=== PATIENT | male | born 1965 | race Caucasian/White ===

== ENCOUNTER 2016-12-11 17:26 | Emergency (ER) | payer OTHER ==
[~2016-12-11] VITALS: Ht 175.3 cm; Wt 81.0 kg
[~2016-12-11 17:26] MED LIST: PRIL20TA2 PO; VENTAER INH; ZITH250T PO
[2016-12-11 17:30] VITALS: BP 170/101; PULSE 85; RESP 16; TEMP 98.6; O2SAT 100
[2016-12-11] MEDS ORDERED: PRIL20CA9 PO (17:38)
--- NOTE | 2016-12-11 17:57 | PD ---
HPI Chief Complaint: Back/ Neck Pain or Injury Time Seen by Provider: 17:52 Travel History International Travel<30 days: No Contact w/Intl Traveler<30days: No Traveled to known affect area: No History of Present Illness HPI 51-year-old male presents to the emergency room for evaluation of low back pain for the past several days. Patient states he first had an episode 3 weeks ago but that seemed to improve slightly until 2 days ago he started back to work. Initial episode was brought on by constant bending down at work. States he tried to stand up at one point and his knees buckled in pain. Pain is localized to the low right lumbar paraspinous musculature. Radiates down the right lower extremity. States certain movements and standing up straight worsens his pain. Pain is improved slightly with laying down, applying heat, and taking Advil. Denies trauma to the back. Denies saddle anesthesia, loss of bowel or bladder control, lower extremity paresthesias, fever, chills, nausea , vomiting, IV drug use, and history of cancer. PFSH Past Medical History Hx Anticoagulant Therapy: No Arthritis: Yes Blood Disorders: No Cancer: No Cardiovascular Problems: No Chemotherapy: No Diabetes: No Diminished Hearing: No Gastrointestinal Disorders: Yes GERD: Yes Genitourinary: No Immune Disorder: No Musculoskeletal: Yes (HX HERNIATED DISC) Neurologic: Yes Psychiatric: No Reproductive: No Respiratory: Yes Immunizations Current: Yes Radiation Therapy: No Tetanus Vaccination: Unknown Influenza Vaccination: No Past Surgical History AICD: No Arteriovenous Shunt: No Insulin Pump: No Joint Replacement: Yes (LEFT KNEE SCREWS) Pacemaker: No Other Surgery: No Social History Alcohol Use: Yes (12 PK) Tobacco Use: Yes (1 PK) Substance Use: No Allergies-Medications (Allergen,Severity, Reaction): Coded Allergies: No Known Allergies (Verified , 12/11/16) Reported Meds & Prescriptions Reported Meds & Active Scripts Active Reported Prilosec (Omeprazole) 20 Mg Cap 20 Mg PO DAILY Review of Systems Except as stated in HPI: all other systems reviewed are Neg Physical Exam Narrative GENERAL: Well-nourished, well-developed male in no acute distress. Afebrile. Ambulatory. SKIN: Warm and dry. HEAD: Normocephalic. EYES: No scleral icterus. No injection or drainage. NECK: Supple, trachea midline. No JVD or lymphadenopathy. BACK: No CVA tenderness. No rash. No point tenderness on palpation of the spine. Tenderness to palpation of the bilateral thoracic paraspinous musculature and right SI joint. Patellar and Achilles reflexes diminished but equal bilaterally. Strength 5/5 and equal in lower extremities. Data Data Last Documented VS Vital Signs Date Time Temp Pulse Resp B/P Pulse Ox O2 Delivery O2 Flow Rate FiO2 12/11/16 18:19 84 18 159/83 98 Room Air 12/11/16 17:30 98.6 Orders Spine, Lumbar - Ltd (Ap & Lat) (12/11/16 ) Ibuprofen (Motrin) (12/11/16 18:00) Cyclobenzaprine (Flexeril) (12/11/16 18:00) Dexamethasone Inj (Decadron Inj) (12/11/16 18:00) MDM Medical Decision Making Medical Screen Exam Complete: Yes Emergency Medical Condition: Yes Medical Record Reviewed: Yes Differential Diagnosis Strain versus fracture versus spasm Narrative Course 51-year-old male presents to the emergency room for evaluation of intermittent low back pain for the 3 weeks that improved initially but worsened 2 days ago. 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 No red flag symptoms. No focal neurological deficits. No midline tenderness. There is tenderness to palpation of the SI joint with radiation to the right lower extremity. No traumatic injury. X-ray reveals degenerative disc disease but no acute fracture. Reports no pain after administration of ibuprofen, Flexeril , and Decadron. Patient will be discharged with prescriptions for ibuprofen and low dose Robaxin. Told to follow-up with a primary care physician or return to the emergency room for worsening symptoms. He understands and agrees to plan. Diagnosis Primary Impression: Repetitive strain injury of lower back Qualified Code: S39.012A - Repetitive strain injury of lower back, initial encounter Referrals: Primary Care Physician Patient Instructions: Acute Low Back Pain (ED), General Instructions Additional Instructions: Rest and drink plenty of fluids. Take Robaxin as directed, as needed for pain. Take ibuprofen with food as directed, as needed for pain. Apply ice to the affected area for 20 minutes at a time, as needed for pain and swelling. Follow-up with a primary care physician. Return to the emergency room for worsening symptoms. Med/Other Pt SpecificInfo: Prescription(s) given Scripts Ibuprofen 600 Mg [id number] Mg PO Q8HR PRN (PAIN) #21 TAB Ref 0 Prov:Gail Mills MD 12/11/16 Methocarbamol (Robaxin)500 Mg [id number] Mg PO Q8HR #15 TAB Ref 0 Prov:Gail Mills MD 12/11/16 Disposition: 01 DISCHARGE HOME Condition: Stable Carlee Portillo Dec 11, 2016 17:57
[2016-12-11] MEDS ORDERED: IBUPROFEN 600 MG TAB PO ONE (18:00)
[2016-12-11] MEDS ORDERED: CYCLOBENZAPRINE HCL 10 MG TAB PO ONE (18:00)
[2016-12-11] MEDS ORDERED: DEXAMETHASONE SOD PHOS 4 MG/ML VIAL IM ONE (18:00)
[2016-12-11 18:19] VITALS: BP 159/83; PULSE 84; RESP 18; O2SAT 98
--- NOTE | 2016-12-11 18:27 | RADHPO ---
EXAM DATE/TIME: 12/11/2016 18:02 [facility] COMPARISON: No previous studies available for comparison. INDICATIONS : Lower back pain for 1 month with no known injury MEDICAL HISTORY : None. SURGICAL HISTORY : None. ENCOUNTER: Initial ACUITY: 1 month PAIN SCORE: 9/10 LOCATION: Lumbar spine FINDINGS: Two view examination was performed. There are five non-rib bearing vertebral bodies. The vertebral bodies are in normal alignment without evidence of subluxation or scoliosis. The disc spaces are mike ntained. The pedicles are intact. Bony mineralization is normal. No fracture is identified. Diffus e mild degenerative changes. CONCLUSION: Mild degenerative changes without fracture. Quinton Almendarez MD on December 11, 2016 at 18:25 Board Certified Radiologist. This report was verified electronically.
[2016-12-11] MEDS ORDERED: IBUP-232 PO (18:30)
[2016-12-11] MEDS ORDERED: ROBA500T PO (18:30)
== END 2016-12-11 18:43 | disposition home or self-care (01) ==
LOC: PHEFT 17:26
DX: S39.012A Strain of muscle, fascia and tendon of lower back, initial encounter (principal); X50.3XXA Overexertion from repetitive movements, initial encounter
CPT/HCPCS: 72100; 96372; 99283; J1100

== ENCOUNTER 2017-05-06 15:13 | Emergency (ER) | payer SELFPAY ==
[~2017-05-06] VITALS: Ht 167.6 cm; Wt 86.1 kg
[~2017-05-06 15:13] MED LIST changes: +IBUP-232 PO; +PRIL20CA9 PO; -PRIL20TA2 PO; +ROBA500T PO; -VENTAER INH; -ZITH250T PO
[2017-05-06 15:21] VITALS: BP 197/106; PULSE 98; RESP 16; TEMP 98.9; O2SAT 99
[2017-05-06 15:33] VITALS: BP 209/105; PULSE 101; RESP 20; O2SAT 97
[2017-05-06] MEDS ORDERED: PRIL20TA2 PO (15:41)
[2017-05-06] MEDS ORDERED: SODIUM CHLOR 0.9% 1000 ML INJ 1,000 ML IV ONE (16:00)
[2017-05-06] MEDS ORDERED: LORazepam 2 MG/ML VIAL IV PUSH ONE (16:00)
--- NOTE | 2017-05-06 16:02 | PD ---
HPI Chief Complaint: Hypertension Time Seen by Provider: 15:47 Travel History International Travel<30 days: No Contact w/Intl Traveler<30days: No Traveled to known affect area: No History of Present Illness HPI This is a 52-year-old male who presents to the emergency department having been at a preop appointment for back surgery in [place] when he was told his blood pressure was high. He had an EKG which demonstrated some signs of left ventricular hypertrophy. I told him he had to come to an emergency Department right away. He's never been told he has high blood pressure but also doesn't see a primary care physician. He does drink 12 beers per day. He drinks 6 beers last night. He acknowledges he may have drank a little bit last because he was going to this appointment. He denies any current chest pain, shortness of breath or headache. PFSH Past Medical History Hx Anticoagulant Therapy: No Arthritis: Yes Blood Disorders: No Cancer: No Cardiovascular Problems: No Chemotherapy: No Diabetes: No Diminished Hearing: No Gastrointestinal Disorders: Yes GERD: Yes Genitourinary: No Immune Disorder: No Musculoskeletal: Yes (HX HERNIATED DISC) Neurologic: Yes Psychiatric: No Reproductive: No Respiratory: Yes Immunizations Current: Yes Radiation Therapy: No Tetanus Vaccination: < 5 Years Influenza Vaccination: No Past Surgical History AICD: No Arteriovenous Shunt: No Insulin Pump: No Joint Replacement: Yes (LEFT KNEE SCREWS) Pacemaker: No Other Surgery: No Social History Alcohol Use: Yes (12 PK) Tobacco Use: Yes (1 1/2 PK) Substance Use: No Allergies-Medications (Allergen,Severity, Reaction): Coded Allergies: No Known Allergies (Verified , 05/06/17) Reported Meds & Prescriptions Reported Meds & Active Scripts Active Reported Prilosec (Omeprazole Magnesium) 20 Mg Tab 1 Tab PO DAILY Review of Systems Except as stated in HPI: all other systems reviewed are Neg Physical Exam Narrative GENERAL: Tremulous, no acute distress SKIN: Focused skin assessment warm and dry. HEAD: Atraumatic. Normocephalic. EYES: Pupils equal and round. No injection or drainage. ENT: Moist mucous membranes NECK: Trachea midline. CARDIOVASCULAR: Tachycardic. No murmur appreciated. RESPIRATORY: Clear to auscultation. Breath sounds equal bilaterally. GASTROINTESTINAL: Abdomen soft, non-tender, hepatomegaly 2 cm below the costal margin. MUSCULOSKELETAL: No obvious deformities. NEUROLOGICAL: Awake and alert. No obvious cranial nerve deficits. Moving all extremities. PSYCHIATRIC: Appropriate mood and affect; insight and judgment normal. Data Data Last Documented VS Vital Signs Date Time Temp Pulse Resp B/P Pulse Ox O2 Delivery O2 Flow Rate FiO2 05/06/17 15:34 93 97 Room Air 05/06/17 15:33 20 209/105 05/06/17 15:21 98.9 Orders Complete Blood Count With Diff (05/06/17 15:48) Comprehensive Metabolic Panel (05/06/17 15:48) ^ Insert Iv (05/06/17 15:48) Troponin I (05/06/17 15:48) Sodium Chlor 0.9% 1000 Ml Inj (Ns 1000 M (05/06/17 16:00) Lorazepam Inj (Ativan Inj) (05/06/17 16:00) MDM Medical Decision Making Medical Screen Exam Complete: Yes Emergency Medical Condition: Yes Interpretation(s) Afebrile, tachycardic, hypertensive Differential Diagnosis Acute alcohol withdrawal, hypertension, hypertensive urgency, hypertensive emergency Narrative Course This is a 52-year-old male who presents to the emergency department with high blood pressure that was appreciated at a preop appointment. He is asymptomatic currently. He does appear tremulous on exam. I suspect this is acute alcohol withdrawal. He acknowledges that he drank a little bit less yesterday leading up to this appointment. Patient was given a dose of IV Ativan. Labs will be obtained. I think he can be discharged home if his blood pressure improves with Ativan. He was given resources for establishing a primary care physician. Gail Mills MD May 06, 2017 16:02
[2017-05-06 16:12] VITALS: BP 193/93; PULSE 89; RESP 20; O2SAT 97
[2017-05-06 16:24] LABS: BASOPHIL % 0.6 % (0.0-2.0); EOSINOPHIL # 0.1 TH/MM3 (0-0.4); EOSINOPHIL % 1.3 % (0.0-4.0); LYMPH % 31.5 % (9.0-44.0); LYMPHOCYTE # 1.6 TH/MM3 (1.0-4.8); MEAN CELL VOLUME 96.2 FL (80.0-100.0); MEAN CORPUSCULAR HEMOGLOBIN 32.2 PG (27.0-34.0); MEAN CORPUSCULAR HGB CONC 33.5 % (32.0-36.0); MONO % 10.6 % (0.0-8.0); PLATELET COUNT 93 TH/MM3 (150-450); RED CELL DISTRIBUTION WIDTH 13.6 % (11.6-17.2); WHITE BLOOD COUNT 5.2 TH/MM3 (4.0-11.0)
[2017-05-06 16:32] LABS: CHLORIDE 98 MEQ/L (98-107); POTASSIUM 3.6 MEQ/L (3.5-5.1); SODIUM (NA) 133 MEQ/L (136-145)
[2017-05-06 16:36] LABS: ANION GAP 13 MEQ/L (5-15); BICARBONATE 22.5 MEQ/L (21.0-32.0)
[2017-05-06 16:37] LABS: BLOOD UREA NITROGEN 4 MG/DL (7-18)
[2017-05-06 16:40] LABS: ALT (GPT) 82 U/L (12-78); AST (GOT) 82 U/L (15-37); GLOMERULAR FILTRATION RATE 107 ML/MIN (>89)
[2017-05-06 16:41] LABS: TOTAL BILIRUBIN ADULT 0.8 MG/DL (0.2-1.0)
[2017-05-06 16:42] LABS: ALKALINE PHOSPHATASE 85 U/L (45-117)
[2017-05-06] MEDS ORDERED: cloNIDine HCL 0.1 MG TAB PO ONE (16:45)
[2017-05-06 16:57] LABS: HEMO FLAGS AUTO DIFF
[2017-05-06 17:06] VITALS: BP 193/95; PULSE 95; RESP 18; O2SAT 97
[2017-05-06] MEDS ORDERED: LISI10TA3 PO (17:18)
--- NOTE | 2017-05-06 17:18 | PD ---
HPI Chief Complaint: Hypertension Time Seen by Provider: 17:05 Travel History International Travel<30 days: No Contact w/Intl Traveler<30days: No Traveled to known affect area: No History of Present Illness HPI This 52-year-old male presented with complaint of high blood pressure. He had gone for a preop evaluation he is scheduled for back surgery next week. He has not had high blood pressure. He does drink a fair amount of beer and had less. The unusual last night. She thought he might be having some symptoms of withdrawal. He was given Ativan. His blood pressures come to 180/100. He had 1 previous episode was blood pressure was high related to pain. He has never been treated for chronic hypertension PFSH Past Medical History Hx Anticoagulant Therapy: No Arthritis: Yes Blood Disorders: No Cancer: No Cardiovascular Problems: No Chemotherapy: No Diabetes: No Diminished Hearing: No Gastrointestinal Disorders: Yes GERD: Yes Genitourinary: No Immune Disorder: No Musculoskeletal: Yes (HX HERNIATED DISC) Neurologic: Yes Psychiatric: No Reproductive: No Respiratory: Yes Immunizations Current: Yes Radiation Therapy: No Tetanus Vaccination: < 5 Years Influenza Vaccination: No Past Surgical History AICD: No Arteriovenous Shunt: No Insulin Pump: No Joint Replacement: Yes (LEFT KNEE SCREWS) Pacemaker: No Other Surgery: No Social History Alcohol Use: Yes (12 PK) Tobacco Use: Yes (1 1/2 PK) Substance Use: No Allergies-Medications (Allergen,Severity, Reaction): Coded Allergies: No Known Allergies (Verified , 05/06/17) Reported Meds & Prescriptions Reported Meds & Active Scripts Active Reported Prilosec (Omeprazole Magnesium) 20 Mg Tab 1 Tab PO DAILY Review of Systems General / Constitutional: No: Fever, Chills Eyes: No: Diploplia, Photophobia HENT: No: Headaches Respiratory: No: Cough, Shortness of Breath Gastrointestinal: No: Vomiting, Diarrhea Genitourinary: No: Urgency Musculoskeletal: No: Myalgias Physical Exam Narrative See Dr. Stevens's dictation Data Data Last Documented VS Vital Signs Date Time Temp Pulse Resp B/P Pulse Ox O2 Delivery O2 Flow Rate FiO2 05/06/17 16:12 89 20 193/93 97 Room Air 05/06/17 15:21 98.9 Orders Complete Blood Count With Diff (05/06/17 15:48) Comprehensive Metabolic Panel (05/06/17 15:48) ^ Insert Iv (05/06/17 15:48) Troponin I (05/06/17 15:48) Sodium Chlor 0.9% 1000 Ml Inj (Ns 1000 M (05/06/17 16:00) Lorazepam Inj (Ativan Inj) (05/06/17 16:00) Clonidine (Catapres) (05/06/17 16:45) Labs Laboratory Tests Test 05/06/17 15:45 White Blood Count 5.2 TH/MM3 Red Blood Count 5.40 MIL/MM3 Hemoglobin 17.4 GM/DL Hematocrit 52.0 % Mean Corpuscular Volume 96.2 FL Mean Corpuscular Hemoglobin 32.2 PG Mean Corpuscular Hemoglobin 33.5 % Concent Red Cell Distribution Width 13.6 % Platelet Count 93 TH/MM3 Mean Platelet Volume 8.2 FL Neutrophils (%) (Auto) 56.0 % Lymphocytes (%) (Auto) 31.5 % Monocytes (%) (Auto) 10.6 % Eosinophils (%) (Auto) 1.3 % Basophils (%) (Auto) 0.6 % Neutrophils # (Auto) 3.0 TH/MM3 Lymphocytes # (Auto) 1.6 TH/MM3 Monocytes # (Auto) 0.5 TH/MM3 Eosinophils # (Auto) 0.1 TH/MM3 Basophils # (Auto) 0.0 TH/MM3 CBC Comment AUTO DIFF Sodium Level 133 MEQ/L Potassium Level 3.6 MEQ/L Chloride Level 98 MEQ/L Carbon Dioxide Level 22.5 MEQ/L Anion Gap 13 MEQ/L Blood Urea Nitrogen 4 MG/DL Creatinine 0.77 MG/DL Estimat Glomerular Filtration 107 ML/MIN Rate Random Glucose 178 MG/DL Calcium Level 8.7 MG/DL Total Bilirubin 0.8 MG/DL Aspartate Amino Transf 82 U/L (AST/SGOT) Alanine Aminotransferase 82 U/L (ALT/SGPT) Alkaline Phosphatase 85 U/L Troponin I 0.02 NG/ML Total Protein 8.2 GM/DL Albumin 3.8 GM/DL [facility] Medical Decision Making Medical Screen Exam Complete: Yes Emergency Medical Condition: Yes Medical Record Reviewed: Yes Differential Diagnosis Differential includes alcohol withdrawal, essential hypertension Narrative Course Patient was given Ativan with improvement of his tremulousness. His blood pressure remained elevated and he has been given clonidine. This is asymptomatic hypertension and I don't think aggressive treatment warranted now but I do feel the patient needs to be on medication for blood pressure. I will initiate lisinopril dose of 10 mg daily but I told the patient that we will start low dose and he'll need to be reevaluated couple of days to see if the dose needs to be increased. Diagnosis Primary Impression: Hypertension Qualified Code: I10 - Essential hypertension Scripts Lisinopril 10 Mg Tab10 Mg PO DAILY #30 TAB Ref 0 Prov:King Farias MD 05/06/17 Disposition: 01 DISCHARGE HOME Condition: Stable King Farias MD May 06, 2017 17:18
[2017-05-06 17:21] LABS: PLATELET ESTIMATE SMEAR NORMAL (NORMAL); PLATELET MORPHOLOGY NORMAL (NORMAL); SCAN/DIFF AUTO DIFF CONFIRMED
[2017-05-06] MEDS ORDERED: CHLO25CA9 PO (17:26)
[2017-05-06] MEDS ORDERED: LISINOPRIL 10 MG TAB PO ONE (17:30)
[2017-05-06 18:00] VITALS: BP 170/96
--- NOTE | 2017-05-07 19:40 | EKG ---
Date Performed: 05/06/2017 Time Performed: 15:33:08 PTAGE: 52 years EKG: Sinus rhythm with borderline 1st degree A-V block Lateral ST-T changes are nonspecific Borderline ECG PREVIOUS TRACING : 09/26/2007 09.17 Compared to prior tracing no significant change DOCTOR: Elder Jaqruin Interpretating Date/Time 05/07/2017 19:39:40
== END 2017-05-06 18:15 | disposition home or self-care (01) ==
LOC: PHED 15:13
DX: I10 Essential (primary) hypertension (principal); I51.7 Cardiomegaly; K21.9 Gastro-esophageal reflux disease without esophagitis; F17.210 Nicotine dependence, cigarettes, uncomplicated; R94.31 Abnormal electrocardiogram [ECG] [EKG]; I44.0 Atrioventricular block, first degree
CPT/HCPCS: 80053; 84484; 85025; 93005; 96361; 96374; 99284; J2060; J7030

== ENCOUNTER 2017-05-23 16:05 | Observation (INO) | payer SELFPAY ==
[~2017-05-23] VITALS: Ht 175.3 cm; Wt 86.0 kg
[~2017-05-23 16:05] MED LIST changes: +CHLO25CA9 PO; -IBUP-232 PO; +LISI10TA3 PO; -PRIL20CA9 PO; +PRIL20TA2 PO; -ROBA500T PO
[2017-05-23 16:07] VITALS: BP 234/112; PULSE 104; RESP 20; TEMP 98.7; O2SAT 99
[2017-05-23 17:28] VITALS: BP 209/102; PULSE 90; RESP 16; O2SAT 98
[2017-05-23] MEDS ORDERED: SODIUM CHLORIDE 0.9% FLUSH 10 ML FLUSH IVF PRN (18:00)
[2017-05-23] MEDS ORDERED: hydrALAZINE HCL 20 MG/ML VIAL IV PUSH ONE (18:00)
[2017-05-23 18:09] VITALS: BP 205/99; PULSE 86; RESP 16; O2SAT 100
--- NOTE | 2017-05-23 18:27 | PD ---
HPI Chief Complaint: Hypertension Time Seen by Provider: 17:36 Travel History International Travel<30 days: No Contact w/Intl Traveler<30days: No Traveled to known affect area: No History of Present Illness HPI 52-year-old male with a history of tobaccoism, daily alcohol use, newly diagnosed hypertension, presents from his doctor's office for evaluation and treatment of elevated blood pressure. The patient was seen at [facility] last month and diagnosed with new onset hypertension. He was started on lisinopril. When he followed up with the outpatient clinic, they found his blood pressure to be over 200 systolic and 100 diastolic. The patient denies any headache. He does report orthostatic dizziness. He denies any chest pain but does state that he occasionally gets tightness. PFSH Past Medical History Hx Anticoagulant Therapy: No Arthritis: Yes Blood Disorders: No Cancer: No Cardiovascular Problems: Yes (HTN) Chemotherapy: No Diabetes: No Diminished Hearing: No Gastrointestinal Disorders: Yes GERD: Yes Genitourinary: No Immune Disorder: No Musculoskeletal: Yes (HX HERNIATED DISC) Neurologic: Yes Psychiatric: No Reproductive: No Respiratory: No Immunizations Current: Yes Radiation Therapy: No ?: Not Past Surgical History AICD: No Arteriovenous Shunt: No Hysterectomy: No Insulin Pump: No Joint Replacement: Yes (LEFT KNEE SCREWS) Pacemaker: No Other Surgery: No Social History Alcohol Use: Yes Tobacco Use: Yes Substance Use: No Allergies-Medications (Allergen,Severity, Reaction): Coded Allergies: No Known Allergies (Verified , 05/23/17) Reported Meds & Prescriptions Reported Meds & Active Scripts Active Lisinopril 10 Mg Tab 10 Mg PO DAILY Reported Prilosec (Omeprazole Magnesium) 20 Mg Tab 1 Tab PO DAILY Review of Systems Except as stated in HPI: all other systems reviewed are Neg General / Constitutional: No: Fever, Chills Eyes: Positive: Blurred Vision (right eye), No: Blindness HENT: No: Headaches, Neck Pain Cardiovascular: Positive: Chest Pain or Discomfort, No: Palpitations ( occasional tightness, none now) Respiratory: No: Cough, Shortness of Breath Gastrointestinal: No: Nausea, Vomiting, Abdominal Pain Musculoskeletal: No: Weakness, Pain Neurologic: Positive: Other (does get tremors occasionally.), No: Weakness, Dizziness, Headache, Change in Mentation, Slurred Speech Physical Exam Narrative GENERAL: Developed well-nourished male in no acute respiratory distress. Patient has a tegan complexion. SKIN: Focused skin assessment warm/dry. HEAD: Atraumatic. Normocephalic. EYES: Pupils equal and round. No scleral icterus. Scleral injection with no drainage. ENT: No nasal bleeding or discharge. Mucous membranes pink and moist. NECK: Trachea midline. Supple. No obvious JVD. CARDIOVASCULAR: Regular rate and rhythm. No murmur appreciated. RESPIRATORY: No accessory muscle use. Clear to auscultation. Breath sounds equal bilaterally. GASTROINTESTINAL: Abdomen soft, non-tender, nondistended. MUSCULOSKELETAL: No obvious deformities. No clubbing. No cyanosis. No edema. NEUROLOGICAL: Awake and alert. No obvious cranial nerve deficits. Motor grossly within normal limits. Normal speech. Data Data Last Documented VS Vital Signs Date Time Temp Pulse Resp B/P Pulse Ox O2 Delivery O2 Flow Rate FiO2 05/23/17 18:31 88 16 168/79 96 Room Air 05/23/17 16:07 98.7 Orders Complete Blood Count With Diff (05/23/17 17:51) Comprehensive Metabolic Panel (05/23/17 17:51) Ckmb (Isoenzyme) Profile (05/23/17 17:51) Troponin I (05/23/17 17:51) Iv Access Insert/Monitor (05/23/17 17:51) Electrocardiogram (05/23/17 17:51) Ecg Monitoring (05/23/17 17:51) Oximetry (05/23/17 17:51) Oxygen Administration (05/23/17 17:51) Chest, Single Ap (05/23/17 17:51) Sodium Chloride 0.9% Flush (Ns Flush) (05/23/17 18:00) Hydralazine Inj (Apresoline Inj) (05/23/17 18:00) Labs Laboratory Tests Test 05/23/17 18:10 White Blood Count 5.7 TH/MM3 Red Blood Count 5.27 MIL/MM3 Hemoglobin 17.3 GM/DL Hematocrit 49.8 % Mean Corpuscular Volume 94.4 FL Mean Corpuscular Hemoglobin 32.9 PG Mean Corpuscular Hemoglobin 34.8 % Concent Red Cell Distribution Width 13.8 % Platelet Count 116 TH/MM3 Mean Platelet Volume 8.3 FL Neutrophils (%) (Auto) % Lymphocytes (%) (Auto) % Monocytes (%) (Auto) % Eosinophils (%) (Auto) % Basophils (%) (Auto) % Neutrophils # (Auto) TH/MM3 Lymphocytes # (Auto) TH/MM3 Monocytes # (Auto) TH/MM3 Eosinophils # (Auto) TH/MM3 Basophils # (Auto) TH/MM3 CBC Comment AUTO DIFF Sodium Level 134 MEQ/L Potassium Level 4.0 MEQ/L Chloride Level 102 MEQ/L Carbon Dioxide Level 24.7 MEQ/L Anion Gap 7 MEQ/L Blood Urea Nitrogen 5 MG/DL Creatinine 0.77 MG/DL Estimat Glomerular Filtration 107 ML/MIN Rate Random Glucose 124 MG/DL Calcium Level 9.4 MG/DL Aspartate Amino Transf 82 U/L (AST/SGOT) Alanine Aminotransferase 93 U/L (ALT/SGPT) Albumin 3.8 GM/DL [facility] Medical Decision Making Medical Screen Exam Complete: Yes Emergency Medical Condition: Yes Interpretation(s) EKG reveals normal sinus rhythm rate of 85. There are no acute ST elevations or depressions. Differential Diagnosis Hypertensive urgency versus uncontrolled hypertension versus withdrawal related hypertension. Narrative Course 52-year-old male who has a recent diagnosis of hypertension, presents today with complaints of continued hypertension. He is following up with his new doctor at [facility] when they noted his blood pressure to be over 200 systolic and 100 diastolic. The patient has been given 20 mg of IVD hydralazine. His blood pressure has come down into the 170s over 80s. He has been started on lisinopril which obviously is not controlling his blood pressure. I discussed the case with Dr. Black with the resident service and recommended we bring him under observation to control his blood pressure prior to discharge. He is agreeable. Diagnosis Primary Impression: Hypertensive urgency Additional Impressions: Tobacco abuse Alcohol abuse, daily use Admitting Information Admitting Physician Requests: Observation Poncho Draper MD May 23, 2017 18:27
[2017-05-23 18:31] VITALS: BP 168/79; PULSE 88; RESP 16; O2SAT 96
[2017-05-23 18:34] LABS: HEMATOCRIT 49.8 % (39.0-51.0); MEAN CELL VOLUME 94.4 FL (80.0-100.0); MEAN CORPUSCULAR HEMOGLOBIN 32.9 PG (27.0-34.0); MEAN CORPUSCULAR HGB CONC 34.8 % (32.0-36.0); PLATELET COUNT 116 TH/MM3 (150-450); RED BLOOD COUNT 5.27 MIL/MM3 (4.50-5.90); RED CELL DISTRIBUTION WIDTH 13.8 % (11.6-17.2); WHITE BLOOD COUNT 5.7 TH/MM3 (4.0-11.0)
[2017-05-23 18:36] LABS: HEMO FLAGS AUTO DIFF
[2017-05-23 18:46] LABS: ALT (GPT) 93 U/L (12-78); ANION GAP 7 MEQ/L (5-15); AST (GOT) 82 U/L (15-37); BICARBONATE 24.7 MEQ/L (21.0-32.0); BLOOD UREA NITROGEN 5 MG/DL (7-18); CHLORIDE 102 MEQ/L (98-107); GLOMERULAR FILTRATION RATE 107 ML/MIN (>89); SODIUM (NA) 134 MEQ/L (136-145)
[2017-05-23 18:49] LABS: ALKALINE PHOSPHATASE 79 U/L (45-117); TOTAL BILIRUBIN ADULT 0.5 MG/DL (0.2-1.0)
[2017-05-23 19:13] LABS: CREATINE KINASE 94 U/L (39-308)
[2017-05-23] MEDS ORDERED: LORazepam 2 MG/ML VIAL IV PUSH ONE (19:15)
[2017-05-23 19:18] LABS: BANDS 1 % (0-6); BASOPHILS 1 % (0-2); NEUTROPHIL # MANUAL DIFF 4.3 TH/MM3 (1.8-7.7); POLYS (SEG NEUTROPHILS) 74 % (16-70); WBC DIFF SAMPLE 100
[2017-05-23 19:19] LABS: PLATELET ESTIMATE SMEAR LOW (NORMAL); PLATELET MORPHOLOGY NORMAL (NORMAL); SCAN/DIFF FINAL DIFF MANUAL
--- NOTE | 2017-05-23 19:39 | RADRPT ---
EXAM DATE/TIME: 05/23/2017 18:31 [facility] COMPARISON: No previous studies available for comparison. INDICATIONS : Patient states high blood pressure tonight. MEDICAL HISTORY : Hypertension. Smoker SURGICAL HISTORY : None. ENCOUNTER: Initial ACUITY: 1 day PAIN SCORE: 2/10 LOCATION: Bilateral chest FINDINGS: A single view of the chest demonstrates the lungs to be symmetrically aerated without evidence of mas s, infiltrate or effusion. The cardiomediastinal contours are unremarkable. Osseous structures are intact. CONCLUSION: Normal examination. Owen Arellano Jr., MD on May 23, 2017 at 19:37 Board Certified Radiologist. This report was verified electronically.
[2017-05-23 19:42] VITALS: BP 157/76; PULSE 92; RESP 16; O2SAT 99
[2017-05-23] MEDS ORDERED: SODIUM CHLORIDE 0.9% FLUSH 10 ML FLUSH IV FLUSH SCH (21:00)
--- NOTE | 2017-05-23 21:14 | HHI.HP ---
[facility] Service Family Medicine Primary Care Physician No Primary Care Physician Admission Diagnosis Hypertensive urgency, tobacco abuse, daily alcohol use Diagnoses: International Travel<30 Days: No Contact w/Intl Traveler<30days: No Known Affected Area: No History of Present Illness 52 year old male presents with hypertensive urgency. He first became aware of having hypertension on 05/06/17 when he presented for a pre-op evaluation for spondylolisthesis. His blood pressure was significantly elevated and he was told he needed to establish with a primary care. He has not had a primary care doctor in 17 years. He established with a doctor at [facility]. He presented for his first appt today and his blood pressure was 234/108. They sent him to the ED. He does not have any symptoms. No chest pain, shortness of breath, abdominal pain, nausea, vomiting, diarrhea, calf swelling or tenderness , lower extremity edema, lightheadedness, blurry vision, headache, neurological deficits. As a side note, he has significant ulceration on the right ala of nose and above the right lip. These appear to be malignant lesions. His skin is deeply tanned and he is in the sun a lot. He also drinks 8 beers a night. He has been admitted for alcohol withdrawals in the past. (Shade Black MD R2) Review of Systems Constitutional: DENIES: Diaphoretic episodes, Fatigue, Fever, Weight loss, Chills, Dizziness, Change in appetite Endocrine: DENIES: Polydipsia, Polyuria, Polyphagia Eyes: DENIES: Blurred vision, Eye inflammation, Eye pain, Double Vision Ears, nose, mouth, throat: DENIES: Running Nose, Epistaxis, Sinus Pain, Odynophagia Respiratory: DENIES: Cough, Wheezing, Hemoptysis, Sputum production, Shortness of breath Cardiovascular: DENIES: Chest pain, Syncope, Dyspnea on Exertion, Lower Extremity Edema, Orthopnea Gastrointestinal: DENIES: Abdominal pain, Black stools, Bloody stools, Constipation, Diarrhea, Nausea, Vomiting Genitourinary: DENIES: Urinary frequency, Urgency, Dysuria Musculoskeletal: COMPLAINS OF: Back pain, DENIES: Joint pain, Stiffness Integumentary: DENIES: Rash Hematologic/lymphatic: DENIES: Lymphadenopathy Immunologic/allergic: DENIES: Eczema Neurologic: DENIES: Abnormal gait Psychiatric: DENIES: Confusion, Hallucinations, Agitation (Shade Black MD R2) Past Family Social History Past Medical History Gastritis spondylolisthesis no doctor in the last 17 years Past Surgical History left knee surgery Reported Medications Reported Meds & Active Scripts Active Lisinopril 10 Mg Tab 10 Mg PO DAILY Reported Prilosec (Omeprazole Magnesium) 20 Mg Tab 1 Tab PO DAILY (Shade Black MD R2) Allergies: Coded Allergies: No Known Allergies (Verified , 05/23/17) Active Ordered Medications Inpatient Medications Hydralazine HCl (Apresoline Inj) 20 mg ONCE ONCE IV PUSH Last administered on 05/23/17 18:17; Start 05/23/17 at 18:00; Stop 05/23/17 at 18:01; Status DC Lorazepam (Ativan Inj) 2 mg ONCE ONCE IV PUSH Last administered on 05/23/17 19:43; Start 05/23/17 at 19:15; Stop 05/23/17 at 19:16; Status DC Sodium Chloride (NS Flush) 2 ml BID IV FLUSH ; Start 05/23/17 at 21:00 Family History Father: healthy Mother: diabetes, strokes (late 60's), hypertension Sister: high cholesterol Social History Smokes pack per day since age 17 Alcohol: 8 pack per night Lives by himself Sister helps care for him Does not work (Shade Black MD R2) Physical Exam Vital Signs Vital Signs Date Time Temp Pulse Resp B/P Pulse Ox O2 Delivery O2 Flow Rate FiO2 05/23/17 19:42 92 16 157/76 99 Room Air 05/23/17 18:31 88 16 168/79 96 Room Air 05/23/17 18:09 86 16 205/99 100 Room Air 05/23/17 18:09 99 Room Air 05/23/17 17:28 90 16 209/102 98 Room Air 05/23/17 17:24 98 Room Air 05/23/17 16:07 98.7 104 20 234/112 99 Room Air Physical Exam GENERAL: Somewhat disheveled, darkly tanned SKIN: Significant ulceration of the right ala and right upper lip appearing malignant, likely basal cell versus squamous cell carcinoma. HEAD: Atraumatic. Normocephalic. No temporal or scalp tenderness. EYES: Pupils equal round and reactive. Extraocular motions intact. No scleral icterus. No injection or drainage. ENT: Nose without bleeding, purulent drainage or septal hematoma. Throat without erythema, tonsillar hypertrophy or exudate. Uvula midline. Airway patent. NECK: Trachea midline. No JVD or lymphadenopathy. Supple, nontender, no meningeal signs. CARDIOVASCULAR: Regular rate and rhythm without murmurs, gallops, or rubs. RESPIRATORY: Clear to auscultation. Breath sounds equal bilaterally. No wheezes , rales, or rhonchi. GASTROINTESTINAL: Abdomen soft, non-tender, nondistended. No hepato-splenomegaly , or palpable masses. No guarding. MUSCULOSKELETAL: Extremities without clubbing, cyanosis, or edema. No joint tenderness, effusion, or edema noted. No calf tenderness. Negative Homans sign bilaterally. NEUROLOGICAL: Awake and alert. Cranial nerves II through XII intact. Motor and sensory grossly within normal limits. Five out of 5 muscle strength in all muscle groups. Normal speech. Laboratory Laboratory Tests Test 05/23/17 18:10 White Blood Count 5.7 Red Blood Count 5.27 Hemoglobin 17.3 Hematocrit 49.8 Mean Corpuscular Volume 94.4 Mean Corpuscular Hemoglobin 32.9 Mean Corpuscular Hemoglobin 34.8 Concent Red Cell Distribution Width 13.8 Platelet Count 116 Mean Platelet Volume 8.3 Neutrophils (%) (Auto) Lymphocytes (%) (Auto) Monocytes (%) (Auto) Eosinophils (%) (Auto) Basophils (%) (Auto) Neutrophils # (Auto) Lymphocytes # (Auto) Monocytes # (Auto) Eosinophils # (Auto) Basophils # (Auto) CBC Comment AUTO DIFF Differential Total Cells 100 Counted Neutrophils % (Manual) 74 Band Neutrophils % 1 Lymphocytes % 12 Monocytes % 12 Basophils % 1 Neutrophils # (Manual) 4.3 Differential Comment FINAL DIFF MANUAL Platelet Estimate LOW Platelet Morphology Comment NORMAL Red Cell Morphology Comment NORMAL Sodium Level 134 Potassium Level 4.0 Chloride Level 102 Carbon Dioxide Level 24.7 Anion Gap 7 Blood Urea Nitrogen 5 Creatinine 0.77 Estimat Glomerular Filtration 107 Rate Random Glucose 124 Calcium Level 9.4 Total Bilirubin 0.5 Aspartate Amino Transf 82 (AST/SGOT) Alanine Aminotransferase 93 (ALT/SGPT) Alkaline Phosphatase 79 Total Creatine Kinase 94 Troponin I 0.02 Total Protein 8.1 Albumin 3.8 (Shade Black MD R2) Result Diagram: 05/23/17180905/23/17 181 Imaging Last 72 hours Impressions Chest X-Ray 05/23/17 1751 Signed Impressions: Service Date/Time: Tuesday, May 23, 2017 18:31 - CONCLUSION: Normal examination. Owen Arellano Jr., MD (Shade Black MD R2) Septic Shock Reassessment Heart: Regular rate and rhythm Lungs: Clear Skin: Warm Capillary Refill: <2 seconds (Shade Black MD R2) Assessment and Plan Assessment and Plan 52 year old male with hypertensive urgency Code Status FULL CODE Discussed Condition With Seen and discussed with Dr. Contreras, Dr. Draper (Shade Black MD R2) Attending Attestation Patient seen and examined. Case reviewed and discussed with the resident team. Agree with plan of care as discussed with me and documented in the resident note. pt seen in ED on admission, doing well with decreased BPs (Laila Salazar MD) Problem List: (1) Hypertensive urgency Status: Acute Plan: Blood pressure in the 200's/100's without evidence of end organ damage, hypertensive urgency. Given hydralazine 20 mg once in ED. - Continue lisinopril 10 mg from home - Add amlodipine 10 mg daily - Clonidine 0.1 mg PO PRN - Avoid rapid lowering of blood pressure, aim for 20% reduction in first 24 hrs - Cardiac monitoring - ECHO tomorrow - EKG reviewed, LVH, sinus rhythm (2) Alcohol abuse, daily use Status: Chronic Plan: Drinks 8 beers per night, history of alcohol withdrawals per records - CIWA protocol - Ativan PRN according to CIWA score - Multivitamin, thiamine, folic acid (3) Tobacco abuse Status: Chronic Plan: Smoke 1 PPD - Nicotine patch - Counseling for tobacco cessation (4) Squamous cell carcinoma Status: Chronic Plan: Ulceration of right ala and right upper lip, suggestive of basal cell or squamous cell carcinoma - Referral to be worked up as an outpatient - Counseling about sun exposure (5) Nutrition, metabolism, and development symptoms Status: Acute Plan: PO fluids Regular diet (6) No contraindication to deep vein thrombosis (DVT) prophylaxis Status: Acute Plan: SCD's Lovenox 40 mg (Shade Black MD R2) Shade Black MD R2 May 23, 2017 21:14 Laila Salazar MD May 24, 2017 13:59
[2017-05-23] MEDS ORDERED: cloNIDine HCL 0.1 MG TAB PO PRN (21:15)
[2017-05-23] MEDS ORDERED: SODIUM CHLORIDE 0.9% FLUSH 10 ML FLUSH IV FLUSH PRN (21:15)
[2017-05-23] MEDS ORDERED: LORazepam 2 MG TAB PO PRN (21:15)
[2017-05-23] MEDS ORDERED: NICOTINE 7 MG/24 HR PATCH T-DERMAL ONE (21:15)
[2017-05-23] MEDS ORDERED: FLUMAZENIL 0.5 MG/5 ML VIAL IV PUSH PRN (21:15)
[2017-05-23] MEDS ORDERED: ONDANSETRON HCL 4 MG/2 ML VIAL IV PRN (21:15)
[2017-05-23] MEDS ORDERED: LORazepam 2 MG/ML VIAL IV PUSH PRN ×4 (21:15)
[2017-05-23] MEDS ORDERED: LORazepam 1 MG TAB PO PRN (21:15)
[2017-05-23] MEDS ORDERED: ENOXAPARIN SODIUM 40 MG/0.4 ML SYRINGE SQ SCH (22:00)
[2017-05-23 22:32] LABS: BACTERIA, URINE RARE /hpf; BLOOD, URINE NEG (NEG); COMMENT (UR) CULT NOT INDICATED; CULTURE IF INDICATED CULT NOT INDICATED; GLUCOSE,URINE NEG (NEG); KETONE, URINE NEG (NEG); NITRITE,URINE NEG (NEG); URINE COLOR YELLOW (YELLW/STRAW)
[2017-05-23 22:47] VITALS: BP 172/90; PULSE 90; RESP 18; O2SAT 99
[2017-05-23 23:02] LABS: AMPHETAMINE, URINE NEG (NEG); BARBITURATES, URINE NEG (NEG); COCAINE, URINE NEG (NEG)
[2017-05-24] VITALS (7 sets, daily range): BP systolic 154–198; BP diastolic 87–101; PULSE 84–89; RESP 16–18; TEMP 98.5–98.7; O2SAT 98–99
[2017-05-24] MEDS ORDERED: LISI10TA3 PO (01:10)
[2017-05-24] MEDS ORDERED: LISINOPRIL 10 MG TAB PO SCH (09:00)
[2017-05-24] MEDS ORDERED: FOLIC ACID 1 MG TAB PO SCH (09:00)
[2017-05-24] MEDS ORDERED: SODIUM CHLORIDE 0.9% FLUSH 10 ML FLUSH IV FLUSH SCH (09:00)
[2017-05-24] MEDS ORDERED: PNEUMOCOCCAL POLYVALENT INJ 25 MCG/0.5 ML SYR IM ONE (09:00)
[2017-05-24] MEDS ORDERED: PANTOPRAZOLE SOD 40 MG DELAYED RELEASE TAB PO SCH (09:00)
[2017-05-24] MEDS ORDERED: NICOTINE 7 MG/24 HR PATCH T-DERMAL SCH (09:00)
[2017-05-24] MEDS ORDERED: MULTIVITAMINS/MINERALS THERAPEUTIC TAB PO SCH (09:00)
[2017-05-24] MEDS ORDERED: REMOVE OLD NICODERM (NICOTINE) PATCH T-DERMAL SCH (09:00)
[2017-05-24] MEDS ORDERED: THIAMINE HCL 100 MG TAB PO SCH (09:00)
[2017-05-24 09:38] LABS: HEMATOCRIT 49.3 % (39.0-51.0); MEAN CELL VOLUME 93.6 FL (80.0-100.0); MEAN CORPUSCULAR HGB CONC 35.3 % (32.0-36.0); PLATELET COUNT 117 TH/MM3 (150-450); RED BLOOD COUNT 5.26 MIL/MM3 (4.50-5.90); RED CELL DISTRIBUTION WIDTH 13.8 % (11.6-17.2); REVIEW FLAG FINAL
--- NOTE | 2017-05-24 09:45 | HHI.HP ---
[facility] Service Family Medicine Primary Care Physician No Primary Care Physician Admission Diagnosis Hypertensive urgency, tobacco abuse, daily alcohol use Diagnoses: (1) Hypertensive urgency Diagnosis: Principal (2) Alcohol abuse, daily use Diagnosis: Principal (3) Tobacco abuse Diagnosis: Principal (4) Squamous cell carcinoma Diagnosis: Principal (5) Nutrition, metabolism, and development symptoms Diagnosis: Principal (6) No contraindication to deep vein thrombosis (DVT) prophylaxis Diagnosis: Principal International Travel<30 Days: No Contact w/Intl Traveler<30days: No Known Affected Area: No History of Present Illness 52 year old male presents with hypertensive urgency. He first became aware of having hypertension on 05/06/17 when he presented for a pre-op evaluation for spondylolisthesis. His blood pressure was significantly elevated and he was told he needed to establish with a primary care. He has not had a primary care doctor in 17 years. He established with a doctor at [facility]. He presented for his first appt and his blood pressure was 234/108. They sent him to the ED. He does not have any symptoms. No chest pain, shortness of breath, abdominal pain, nausea, vomiting, diarrhea, calf swelling or tenderness, lower extremity edema, lightheadedness, blurry vision, headache, neurological deficits. As a side note, he has significant ulceration on the right ala of nose and above the right lip. These appear to be malignant lesions. His skin is deeply tanned and he is in the sun a lot. He also drinks 8 beers a night. He has been admitted for alcohol withdrawals in the past. He feels well today and his BPs are significantly lower than his outpt numbers of systolics greater than 230. he has been less than 200 while here in the hospital. He states he gets very nervous when he is in the hospital or when he has his BPs checked. Review of Systems Other Constitutional: DENIES: Diaphoretic episodes, Fatigue, Fever, Weight loss, Chills, Dizziness, Change in appetite Endocrine: DENIES: Polydipsia, Polyuria, Polyphagia Eyes: DENIES: Blurred vision, Eye inflammation, Eye pain, Double Vision Ears, nose, mouth, throat: DENIES: Running Nose, Epistaxis, Sinus Pain, Odynophagia Respiratory: DENIES: Cough, Wheezing, Hemoptysis, Sputum production, Shortness of breath Cardiovascular: DENIES: Chest pain, Syncope, Dyspnea on Exertion, Lower Extremity Edema, Orthopnea Gastrointestinal: DENIES: Abdominal pain, Black stools, Bloody stools, Constipation, Diarrhea, Nausea, Vomiting Genitourinary: DENIES: Urinary frequency, Urgency, Dysuria Musculoskeletal: COMPLAINS OF: Back pain, DENIES: Joint pain, Stiffness Integumentary: DENIES: Rash Hematologic/lymphatic: DENIES: Lymphadenopathy Immunologic/allergic: DENIES: Eczema Neurologic: DENIES: Abnormal gait Psychiatric: DENIES: Confusion, Hallucinations, Agitation Past Family Social History Past Medical History Gastritis spondylolisthesis no doctor in the last 17 years HTN Past Surgical History left knee surgery Allergies: Coded Allergies: No Known Allergies (Verified , 05/23/17) Family History Father: healthy Mother: diabetes, strokes (late 60's), hypertension Sister: high cholesterol Social History Smokes pack per day since age 17 Alcohol: 8 pack per night Lives by himself Sister helps care for him Does not work Physical Exam Vital Signs Vital Signs Date Time Temp Pulse Resp B/P Pulse Ox O2 Delivery O2 Flow Rate FiO2 05/24/17 08:08 98.7 86 16 165/87 98 05/24/17 03:45 98.5 89 18 154/88 98 05/23/17 22:47 90 18 172/90 99 05/23/17 19:42 92 16 157/76 99 Room Air 05/23/17 18:31 88 16 168/79 96 Room Air 05/23/17 18:09 86 16 205/99 100 Room Air 05/23/17 18:09 99 Room Air 05/23/17 17:28 90 16 209/102 98 Room Air 05/23/17 17:24 98 Room Air 05/23/17 16:07 98.7 104 20 234/112 99 Room Air Physical Exam GENERAL: Somewhat disheveled, darkly tanned SKIN: Significant ulceration of the right ala and right upper lip appearing malignant, likely basal cell versus squamous cell carcinoma. HEAD: Atraumatic. Normocephalic. EYES: Pupils equal round and reactive. Extraocular motions intact. No scleral icterus. No injection or drainage. ENT: Nose without bleeding, purulent drainage or septal hematoma. Airway patent. NECK: Trachea midline. No JVD or lymphadenopathy. Supple, nontender, no meningeal signs. CARDIOVASCULAR: Regular rate and rhythm without murmurs, gallops, or rubs. RESPIRATORY: Clear to auscultation. Breath sounds equal bilaterally. No wheezes , rales, or rhonchi. GASTROINTESTINAL: Abdomen soft, non-tender, nondistended. No hepato-splenomegaly , or palpable masses. No guarding. MUSCULOSKELETAL: Extremities without clubbing, cyanosis, or edema. No joint tenderness, effusion, or edema noted. No calf tenderness. Negative Homans sign bilaterally. NEUROLOGICAL: Awake and alert. Cranial nerves II through XII intact. Motor and sensory grossly within normal limits. Five out of 5 muscle strength in all muscle groups. Normal speech. walking in [place] feeling well this am Laboratory Laboratory Tests Test 05/23/17 05/23/17 05/24/17 18:10 22:00 09:12 White Blood Count 5.7 5.0 Red Blood Count 5.27 5.26 Hemoglobin 17.3 17.4 Hematocrit 49.8 49.3 Mean Corpuscular Volume 94.4 93.6 Mean Corpuscular Hemoglobin 32.9 33.0 Mean Corpuscular Hemoglobin 34.8 35.3 Concent Red Cell Distribution Width 13.8 13.8 Platelet Count 116 117 Mean Platelet Volume 8.3 8.3 Neutrophils (%) (Auto) Lymphocytes (%) (Auto) Monocytes (%) (Auto) Eosinophils (%) (Auto) Basophils (%) (Auto) Neutrophils # (Auto) Lymphocytes # (Auto) Monocytes # (Auto) Eosinophils # (Auto) Basophils # (Auto) CBC Comment AUTO DIFF Differential Total Cells 100 Counted Neutrophils % (Manual) 74 Band Neutrophils % 1 Lymphocytes % 12 Monocytes % 12 Basophils % 1 Neutrophils # (Manual) 4.3 Differential Comment FINAL DIFF MANUAL Platelet Estimate LOW Platelet Morphology Comment NORMAL Red Cell Morphology Comment NORMAL Sodium Level 134 Potassium Level 4.0 Chloride Level 102 Carbon Dioxide Level 24.7 Anion Gap 7 Blood Urea Nitrogen 5 Creatinine 0.77 Estimat Glomerular Filtration 107 Rate Random Glucose 124 Calcium Level 9.4 Total Bilirubin 0.5 Aspartate Amino Transf 82 (AST/SGOT) Alanine Aminotransferase 93 (ALT/SGPT) Alkaline Phosphatase 79 Total Creatine Kinase 94 Troponin I 0.02 Total Protein 8.1 Albumin 3.8 Urine Color YELLOW Urine Turbidity CLEAR Urine pH 7.0 Urine Specific [place] 1.009 Urine Protein 30 Urine Glucose (UA) NEG Urine Ketones NEG Urine Occult Blood NEG Urine Nitrite NEG Urine Bilirubin NEG Urine Urobilinogen LESS THAN 2.0 Urine Leukocyte Esterase NEG Urine RBC LESS THAN 1 Urine WBC 3 Urine Bacteria RARE Microscopic Urinalysis Comment CULT NOT INDICATED Urine Opiates Screen NEG Urine Barbiturates Screen NEG Urine Amphetamines Screen NEG Urine Benzodiazepines Screen NEG Urine Cocaine Screen NEG Urine Cannabinoids Screen NEG Result Diagram: 05/24/17 0912 05/23/17 1810 Imaging Last 72 hours Impressions Chest X-Ray 05/23/17 1751 Signed Impressions: Service Date/Time: Tuesday, May 23, 2017 18:31 - CONCLUSION: Normal examination. Owen Arellano Jr., MD Assessment and Plan Assessment and Plan 52 year old male with hypertensive urgency He very much wants to go home today. he knows the importance of taking his BP meds and follow up with his new Dr. He is anxious in the hospital and reports he will feel better at home. he does not want to quit drinking alcohol so would not recommend benzos at home. his final echo report is pending but preliminary shows good EF, no but can follow up with his Dr as an outpt Problem List: (1) Hypertensive urgency Status: Acute Plan: Blood pressure in the 200's/100's without evidence of end organ damage except LVH, hypertensive urgency. Given hydralazine 20 mg once in ED. goal is to drop BP slowly over time, he has LVH and is accustomed to very high pressures so his heart and vasculature can remodel over weeks or even months. would aim for a BP systolic less than 200 initially. can then decrease to less than 180 systolic as an outpt. he has a primary care Dr he just started seeing so should be able to follow up with them - Continue lisinopril 10 mg from home (a very low dose) - Add amlodipine 10 mg daily - Clonidine 0.1 mg PO PRN in hospital would avoid at home because of potential rebound HTN - Avoid rapid lowering of blood pressure, aim for 20% reduction in first 24 hrs at most. would decrease BP slowly over time - Cardiac monitoring - ECHO done, can follow up as an outpt - EKG reviewed, LVH, sinus rhythm (2) Alcohol abuse, daily use Status: Chronic Plan: Drinks 8 beers per night, history of alcohol withdrawals per records - CIWA protocol - Ativan PRN according to CIWA score - Multivitamin, thiamine, folic acid he does not want to quit drinking. He reports cutting down from 24 beers per day to about 8. He was advised to quit but is not ready at this point. He states he has baseline anxiety and is afraid when he comes to the hospital but states he is not anxious right now after ativan. he has no hallucinations or other signs of withdrawal now and really wants to go home today (3) Tobacco abuse Status: Chronic Plan: Smoke 1 PPD - Nicotine patch - Counseling for tobacco cessation (4) Squamous cell carcinoma Status: Chronic Plan: Ulceration of right ala and right upper lip, suggestive of basal cell or squamous cell carcinoma - Referral to be worked up as an outpatient - Counseling about sun exposure he was told that he likely has cancer and needs biopsies. he has a referral to general surgery for consideration of biopsy. otherwise if he cannot make that appointment, advised him he could see dermatology, etc. (5) Nutrition, metabolism, and development symptoms Status: Acute Plan: PO fluids Regular diet slight decreased NA possibly beer related, can follow up as an outpt (6) No contraindication to deep vein thrombosis (DVT) prophylaxis Status: Acute Plan: SCD's Lovenox 40 mg Laila Salazar MD May 24, 2017 09:45
[2017-05-24 10:11] LABS: BICARBONATE 23.2 MEQ/L (21.0-32.0); POTASSIUM 3.9 MEQ/L (3.5-5.1)
--- NOTE | 2017-05-24 11:44 | EKG ---
Date Performed: 05/23/2017 Time Performed: 18:14:37 PTAGE: 52 years EKG: Sinus rhythm POSSIBLE LEFT ATRIAL ENLARGEMENT Since previous tracing, no significant change noted BORDERLINE ECG PREVIOUS TRACING : 05/06/2017 15.33 DOCTOR: Ace Rouse Interpretating Date/Time 05/24/2017 12:04:41
[2017-05-24] MEDS ORDERED: AMLO10 PO (11:53)
--- NOTE | 2017-05-24 11:53 | HHI.DCPOC ---
Discharge Care Plan Diagnosis: (1) Hypertensive urgency Goals to Promote Your Health * To prevent worsening of your condition and complications * To maintain your health at the optimal level Directions to Meet Your Goals Take your medications as prescribed Follow your dietary instruction Follow activity as directed Keep your appointments as scheduled Take your immunizations and boosters as scheduled If your symptoms worsen call your PCP, if no PCP go to Urgent Care Center or Emergency Room Smoking is Dangerous to Your Health. Avoid second hand smoke Call the 24-hour hour crisis hotline for domestic abuse at [place] Mera MD R1 May 24, 2017 11:53
--- NOTE | 2017-05-24 15:31 | ECHRPT ---
Indication: Hypertensive heart disease without heart failure CONCLUSIONS Normal left ventricular size. Mild concentric left ventricular hypertrophy. There is global left ventricular dysfunction. The left ventricular systolic function is mildly reduced with an estimated ejection fraction in the range of 45- 50%. Doppler parameters are consistent with impaired left ventricular relaxtion (grade 1 diastolic dysfun ction). Probably Trileaflet aortic valve. [id number]-[id number] aortic valve regurgitation. BP: 154 / 88 HR: 89 Rhythm: Sinus MEASUREMENTS (Male / Female) Normal Values Technical Quality:Technically difficult study 2D ECHO LV Diastolic Diameter PLAX 5.7 cm 4.2 - 5.9 / 3.9 - 5.3 cm LV Systolic Diameter PLAX 4.2 cm IVS Diastolic Thickness 1.5 cm 0.6 - 1.0 / 0.6 - 0.9 cm LVPW Diastolic Thickness 1.5 cm 0.6 - 1.0 / 0.6 - 0.9 cm LV Relative Wall Thickness 0.5 LVOT Diameter 2.7 cm Aortic Root Diameter 3.6 cm LA Systolic Diameter LX 2.7 cm 3.0 - 4.0 / 2.7 - 3.8 cm DOPPLER AV Peak Velocity 185.0 cm/s AV Peak Gradient 13.7 mmHg AV Mean Gradient 7.5 mmHg AV Velocity Time Integral 37.8 cm AI Peak Velocity 393.5 cm/s AI Peak Gradient 61.9 mmHg AI Pressure Half Time 354.5 ms LVOT Peak Velocity 54.1 cm/s LVOT Peak Gradient 1.2 mmHg LVOT Velocity Time Integral 12.9 cm LVOT Cardiac Index 3190.0 cm/minm AV Area Cont Eq vti 2.0 cm AV Area Cont Eq pk 1.7 cm Mitral E Point Velocity 76.5 cm/s Mitral A Point Velocity 119.0 cm/s Mitral E to A Ratio 0.6 LV E' Lateral Velocity 5.7 cm/s Mitral E to LV E' Lateral Ratio 13.5 LV E' Septal Velocity 8.2 cm/s Mitral E to LV E' Septal Ratio 9.3 PV Peak Velocity 57.9 cm/s PV Peak Gradient 1.3 mmHg FINDINGS LEFT VENTRICLE There is global left ventricular dysfunction. Normal left ventricular size. Mild concentric left ventricular hypertrophy. The left ventricular systolic function is mildly reduced with an estimated ejection fraction in the range of 45- 50%. Doppler parameters are consistent with impaired left ventricular relaxtion (grade 1 diastolic dysfun ction). RIGHT VENTRICLE Normal right ventricular size and systolic function. LEFT ATRIUM The left atrial size is normal. RIGHT ATRIUM The right atrial size is normal. ATRIAL SEPTUM The interatrial septum not well visualized. AORTA The aortic root and proximal ascending aorta are not well visualized. MITRAL VALVE Structurally normal mitral valve. Mild mitral valve regurgitation. AORTIC VALVE Probably Trileaflet aortic valve. [id number] aortic valve regurgitation. TRICUSPID VALVE Structurally normal tricuspid valve. No tricuspid regurgitation. PULMONARY VALVE The pulmonary valve is not well visualized. VESSELS The inferior vena cava was not well visualized. PERICARDIUM No pericardial effusion. Fabian Moreno MD (Electronically Signed) Final Date:24 May 2017 15:30
== END 2017-05-24 14:47 | disposition home or self-care (01) ==
LOC: NEPC 16:05 → NEDA 19:25 → NEPHCDU 22:23
PROVIDERS: ADMIT Family Medicine; ATTEND Family Medicine
DX: I16.0 Hypertensive urgency (principal); M43.10 Spondylolisthesis, site unspecified; F17.210 Nicotine dependence, cigarettes, uncomplicated; F10.10 Alcohol abuse, uncomplicated; L98.499 Non-pressure chronic ulcer of skin of other sites with unspecified severity; R93.41 Abnormal radiologic findings on diagnostic imaging of renal pelvis, ureter, or bladder
CPT/HCPCS: 71010; 80048; 80053; 80074; 80307; 81001; 82550; 84484; 85007; 85027; 93005; 93306; 96374; 96375; 99285; G0378; J0360; J1650; J2060

== ENCOUNTER 2018-03-06 12:23 | Inpatient (IN) | payer OTHER ==
[~2018-03-06] VITALS: Ht 175.3 cm; Wt 82.5 kg
[~2018-03-06 12:23] MED LIST changes: +AMLO10 PO; -CHLO25CA9 PO
[2018-03-06 12:26] VITALS: BP 190/94; PULSE 103; RESP 16; TEMP 98.6; O2SAT 99
[2018-03-06] MEDS ORDERED: SODIUM CHLOR 0.9% 1000 ML INJ 1,000 ML IV SCH (12:41)
[2018-03-06] MEDS ORDERED: MORPHINE SULFATE 4 MG/ML INJ IV PUSH ONE (12:45)
[2018-03-06] MEDS ORDERED: KETOROLAC TROMETHAMINE 30 MG/ML (IVP) VIAL IVP ONE (12:45)
[2018-03-06] MEDS ORDERED: SODIUM CHLORIDE 0.9% FLUSH 10 ML FLUSH IV FLUSH PRN ×2 (12:45→15:15)
[2018-03-06] MEDS ORDERED: ONDANSETRON HCL 4 MG/2 ML VIAL IVP ONE (12:45)
--- NOTE | 2018-03-06 12:45 | PD ---
HPI Chief Complaint: Abdominal Pain Time Seen by Provider: 12:34 Travel History International Travel<30 days: No Contact w/Intl Traveler<30days: No Traveled to known affect area: No History of Present Illness HPI The patient is a 52-year-old male who presents to the emergency department for abdominal pain. Patient is a 3 day history of epigastric to right upper quadrant abdominal pain that radiates to the back. The patient denies any nausea, vomiting, or postprandial pain. The patient does complain of mild loose stools. He denies any history of previous abdominal surgeries, pancreatitis, gastritis, peptic ulcer disease, gallstones, or biliary colic. He denies any relationship of the pain to food consumption. He does drink daily , approximately 6-8 beers per day. He denies any fever, chills, or sweats. Symptoms are moderate. There are no current alleviating or exacerbating factors. He denies any dysuria, frequency, urgency, or hematuria. PFSH Past Medical History Hx Anticoagulant Therapy: No Arthritis: Yes Asthma: No Blood Disorders: No Anxiety: No Depression: No Heart Rhythm Problems: No Cancer: No Cardiovascular Problems: Yes (HTN) High Cholesterol: No Chemotherapy: No Chest Pain: No Congestive Heart Failure: No COPD: No Diabetes: Yes Diminished Hearing: No Endocrine: No Gastrointestinal Disorders: Yes GERD: Yes Genitourinary: No Immune Disorder: No Musculoskeletal: Yes (spinal lumbar disc hernia, plan for surgery in future) Neurologic: No Psychiatric: No Reproductive: No Respiratory: Yes (smokers cough) Immunizations Current: Yes Radiation Therapy: No Sleep Apnea: No Thyroid Disease: No Past Surgical History AICD: No Arteriovenous Shunt: No Hysterectomy: No Insulin Pump: No Joint Replacement: Yes (LEFT KNEE SCREWS) Pacemaker: No Other Surgery: No Social History Alcohol Use: Yes Tobacco Use: Yes Substance Use: No Allergies-Medications (Allergen,Severity, Reaction): Coded Allergies: No Known Allergies (Verified Adverse Reaction, Unknown, 03/06/18) Reported Meds & Prescriptions Reported Meds & Active Scripts Active Norvasc (Amlodipine Besylate) 10 Mg Tab 10 Mg PO DAILY Lisinopril 10 Mg Tab 10 Mg PO DAILY Reported Prilosec (Omeprazole Magnesium) 20 Mg Tab 1 Tab PO DAILY Review of Systems Except as stated in HPI: all other systems reviewed are Neg General / Constitutional: No: Fever Cardiovascular: No: Chest Pain or Discomfort Respiratory: No: Shortness of Breath Gastrointestinal: Positive: Abdominal Pain, No: Nausea, Vomiting Skin: No Rash Physical Exam Narrative GENERAL: Awake, alert, pleasant 52-year-old male who appears his stated age and is in no acute respiratory distress. SKIN: Focused skin assessment warm/dry. Significant sun exposure noted to the neck, back, face, and nose. HEAD: Atraumatic. Normocephalic. EYES: Pupils equal and round. No scleral icterus. No injection or drainage. ENT: No nasal bleeding or discharge. Mucous membranes pink and moist. NECK: Trachea midline. No JVD. CARDIOVASCULAR: R regular, tachycardic with a heart rate of 100. RESPIRATORY: No accessory muscle use. Clear to auscultation. Breath sounds equal bilaterally. GASTROINTESTINAL: Abdomen soft, tender to palpation epigastrium and right upper quadrant. Enlarged liver border noted. MUSCULOSKELETAL: Well-healed scars noted over the left lower extremity. Neurologic: Alert and oriented 4. No focal deficits. PSYCHIATRIC: Appropriate mood and affect; insight and judgment normal. Data Data Last Documented VS Vital Signs Date Time Temp Pulse Resp B/P (MAP) Pulse Ox O2 Delivery O2 Flow Rate FiO2 03/06/18 12:53 99 Room Air 03/06/18 12:26 98.6 103 16 190/94 (126) Orders Orders Complete Blood Count With Diff (03/06/18 12:41) Comprehensive Metabolic Panel (03/06/18 12:41) Lipase (03/06/18 12:41) Us Abdomen Gallbladder (03/06/18 ) Iv Access Insert/Monitor (03/06/18 12:41) Ecg Monitoring (03/06/18 12:41) Oximetry (03/06/18 12:41) Morphine Inj (Morphine Inj) (03/06/18 12:45) Ondansetron Inj (Zofran Inj) (03/06/18 12:45) Sodium Chlor 0.9% 1000 Ml Inj (Ns 1000 M (03/06/18 12:41) Sodium Chloride 0.9% Flush (Ns Flush) (03/06/18 12:45) Ketorolac Inj (Toradol Inj) (03/06/18 12:45) Mri Mrcp W/O Contrast (03/06/18 ) Admit Order (Ed Use Only) (03/06/18 14:45) Labs Laboratory Tests Test 03/06/18 12:55 White Blood Count 9.2 TH/MM3 Red Blood Count 5.40 MIL/MM3 Hemoglobin 17.9 GM/DL Hematocrit 50.6 % Mean Corpuscular Volume 93.8 FL Mean Corpuscular Hemoglobin 33.2 PG Mean Corpuscular Hemoglobin Concent 35.3 % Red Cell Distribution Width 13.5 % Platelet Count 125 TH/MM3 Mean Platelet Volume 8.6 FL Neutrophils (%) (Auto) 72.8 % Lymphocytes (%) (Auto) 16.4 % Monocytes (%) (Auto) 7.2 % Eosinophils (%) (Auto) 0.7 % Basophils (%) (Auto) 2.9 % Neutrophils # (Auto) 6.6 TH/MM3 Lymphocytes # (Auto) 1.5 TH/MM3 Monocytes # (Auto) 0.7 TH/MM3 Eosinophils # (Auto) 0.1 TH/MM3 Basophils # (Auto) 0.3 TH/MM3 CBC Comment DIFF FINAL Differential Comment Blood Urea Nitrogen 9 MG/DL Creatinine 0.75 MG/DL Random Glucose 140 MG/DL Total Protein 8.5 GM/DL Albumin 3.8 GM/DL Calcium Level 9.5 MG/DL Alkaline Phosphatase 164 U/L Aspartate Amino Transf (AST/SGOT) 186 U/L Alanine Aminotransferase (ALT/SGPT) 204 U/L Total Bilirubin 5.8 MG/DL Sodium Level 132 MEQ/L Potassium Level 3.8 MEQ/L Chloride Level 100 MEQ/L Carbon Dioxide Level 21.5 MEQ/L Anion Gap 11 MEQ/L Estimat Glomerular Filtration Rate 110 ML/MIN Lipase 47465 U/L [facility] Medical Decision Making Medical Screen Exam Complete: Yes Emergency Medical Condition: Yes Medical Record Reviewed: Yes Interpretation(s) Last Impressions Gall Bladder Ultrasound 03/06/18 0000 Signed Impressions: Service Date/Time: Tuesday, March 06, 2018 13:19 - CONCLUSION: 1. Echogenic liver consistent with hepatic steatosis versus medical liver disease. 2. Large amount of probable thick gallbladder sludge with gallbladder wall thickening. Although nonspecific, findings are likely colonic. Consider HIDA scan if there is significant persistent clinical concern regarding acute cholecystitis. Heber Resendiz MD Laboratory Tests Test 03/06/18 12:55 White Blood Count 9.2 TH/MM3 Red Blood Count 5.40 MIL/MM3 Hemoglobin 17.9 GM/DL Hematocrit 50.6 % Mean Corpuscular Volume 93.8 FL Mean Corpuscular Hemoglobin 33.2 PG Mean Corpuscular Hemoglobin Concent 35.3 % Red Cell Distribution Width 13.5 % Platelet Count 125 TH/MM3 Mean Platelet Volume 8.6 FL Neutrophils (%) (Auto) 72.8 % Lymphocytes (%) (Auto) 16.4 % Monocytes (%) (Auto) 7.2 % Eosinophils (%) (Auto) 0.7 % Basophils (%) (Auto) 2.9 % Neutrophils # (Auto) 6.6 TH/MM3 Lymphocytes # (Auto) 1.5 TH/MM3 Monocytes # (Auto) 0.7 TH/MM3 Eosinophils # (Auto) 0.1 TH/MM3 Basophils # (Auto) 0.3 TH/MM3 CBC Comment DIFF FINAL Differential Comment Blood Urea Nitrogen 9 MG/DL Creatinine 0.75 MG/DL Random Glucose 140 MG/DL Total Protein 8.5 GM/DL Albumin 3.8 GM/DL Calcium Level 9.5 MG/DL Alkaline Phosphatase 164 U/L Aspartate Amino Transf (AST/SGOT) 186 U/L Alanine Aminotransferase (ALT/SGPT) 204 U/L Total Bilirubin 5.8 MG/DL Sodium Level 132 MEQ/L Potassium Level 3.8 MEQ/L Chloride Level 100 MEQ/L Carbon Dioxide Level 21.5 MEQ/L Anion Gap 11 MEQ/L Estimat Glomerular Filtration Rate 110 ML/MIN Lipase 76384 U/L Differential Diagnosis Differential diagnosis includes pancreatitis, peptic ulcer disease, gastritis, biliary colic, symptomatic gallstones, cholecystitis, cirrhosis, alcohol abuse. Narrative Course IV was established, labs are drawn and sent, and the patient was placed on cardiac telemetry monitoring and continuous pulse oximetry monitoring. The patient was administered morphine, Toradol, Zofran, and IV fluids. Ultrasound of the right upper quadrant was obtained. The patient's lipase is greater than 26,000, bilirubin is 5.8, AST and ALT are both elevated, may be alcoholic pancreatitis versus common bile duct stone and obstructive pancreatitis. Ultrasound was performed which reveals gallbladder sludge and mild gallbladder wall thickening but no pericholecystic fluid and no sonographic Lopez sign. MRCP was ordered, I discussed the patient with Dr. Garcia who agrees with MRCP , if the MRCP is positive the patient will need transfer to [facility] for ERCP. If MRCP is negative, patient can maintain admission at [facility]. I discussed the patient with Dr. Ware who agrees with admission. Physician Communication Physician Communication I discussed the patient with Dr. Ware who agrees with admission. Diagnosis Primary Impression: Acute pancreatitis Qualified Codes: K85.90 - Acute pancreatitis without necrosis or infection, unspecified Additional Impressions: Alcoholic hepatitis Qualified Codes: K70.10 - Alcoholic hepatitis without ascites Hyperbilirubinemia Admitting Information Admitting Physician Requests: Admit Condition: Stable Joe Hanna MD Mar 06, 2018 12:45
[2018-03-06 12:53] VITALS: O2SAT 99
[2018-03-06 13:12] LABS: CHLORIDE 100 MEQ/L (98-107); SODIUM (NA) 132 MEQ/L (136-145)
[2018-03-06 13:15] LABS: CALCIUM 9.5 MG/DL (8.5-10.1)
[2018-03-06 13:16] LABS: ALBUMIN 3.8 GM/DL (3.4-5.0); BICARBONATE 21.5 MEQ/L (21.0-32.0); BLOOD UREA NITROGEN 9 MG/DL (7-18); GLUCOSE,RANDOM 140 MG/DL (74-106)
[2018-03-06 13:19] LABS: ALT (GPT) 204 U/L (12-78); AST (GOT) 186 U/L (15-37); CREATININE 0.75 MG/DL (0.60-1.30); GLOMERULAR FILTRATION RATE 110 ML/MIN (>89)
[2018-03-06 13:20] LABS: TOTAL BILIRUBIN ADULT 5.8 MG/DL (0.2-1.0); TOTAL PROTEIN 8.5 GM/DL (6.4-8.2)
[2018-03-06 13:22] LABS: ALKALINE PHOSPHATASE 164 U/L (45-117)
[2018-03-06 13:26] LABS: AUTOMATED NEUTROPHIL # 6.6 TH/MM3 (1.8-7.7); BASOPHIL # 0.3 TH/MM3 (0-0.2); BASOPHIL % 2.9 % (0.0-2.0); EOSINOPHIL # 0.1 TH/MM3 (0-0.4); EOSINOPHIL % 0.7 % (0.0-4.0); HEMATOCRIT 50.6 % (39.0-51.0); HEMOGLOBIN 17.9 GM/DL (13.0-17.0); LYMPH % 16.4 % (9.0-44.0); LYMPHOCYTE # 1.5 TH/MM3 (1.0-4.8); MEAN CELL VOLUME 93.8 FL (80.0-100.0); MEAN CORPUSCULAR HEMOGLOBIN 33.2 PG (27.0-34.0); MEAN CORPUSCULAR HGB CONC 35.3 % (32.0-36.0); MEAN PLATELET VOLUME 8.6 FL (7.0-11.0); MONO % 7.2 % (0.0-8.0); MONOCYTE # 0.7 TH/MM3 (0-0.9); NEUT % 72.8 % (16.0-70.0); PLATELET COUNT 125 TH/MM3 (150-450); RED CELL DISTRIBUTION WIDTH 13.5 % (11.6-17.2); WHITE BLOOD COUNT 9.2 TH/MM3 (4.0-11.0)
--- NOTE | 2018-03-06 14:07 | RADRPT ---
EXAM DATE/TIME: 03/06/2018 13:19 [place] COMPARISON: No previous studies available for comparison. INDICATIONS : Right upper quadrant pain. MEDICAL HISTORY : Hypertension. Gastroesophageal reflux disease. Arthritis. Diabetes. SURGICAL HISTORY : Left knee surgery. ENCOUNTER: Initial ACUITY: 3 days PAIN SCORE: 4/10 LOCATION: Right upper quadrant MEASUREMENTS: LIVER: 17.6 cm length COMMON DUCT: 6 mm RIGHT KIDNEY: 11.3 x 5.0 x 4.8 cm FINDINGS: LIVER: Diffusely increased hepatic echogenicity without evidence for volume loss, mass or intrahepatic ducta l dilatation. COMMON DUCT: No intraluminal mass or stone visualized. GALLBLADDER: Large amount of echogenic non-shadowing material within the gallbladder likely reflecting thick sludg e. Gallbladder is prominent in thickness. No pericholecystic fluid or sonographic Lopez sign. PANCREAS: The visualized portions are within normal limits. RIGHT KIDNEY: No evidence of hydronephrosis, stone, or mass. CONCLUSION: 1. Echogenic liver consistent with hepatic steatosis versus medical liver disease. 2. Large amount of probable thick gallbladder sludge with gallbladder wall thickening. Although nonsp ecific, findings are likely colonic. Consider HIDA scan if there is significant persistent clinical c oncern regarding acute cholecystitis. Heber Resendiz MD on March 06, 2018 at 14:00 Board Certified Radiologist. This report was verified electronically.
[2018-03-06] MEDS ORDERED: FLUMAZENIL 0.5 MG/5 ML VIAL IV PUSH PRN (15:15)
[2018-03-06] MEDS ORDERED: LORazepam 2 MG TAB PO PRN (15:15)
[2018-03-06] MEDS ORDERED: ACETAMINOPHEN 325 MG TAB PO PRN (15:15)
[2018-03-06] MEDS ORDERED: LORazepam 1 MG TAB PO PRN (15:15)
[2018-03-06] MEDS ORDERED: ONDANSETRON HCL 4 MG/2 ML VIAL IVP PRN (15:15)
[2018-03-06] MEDS ORDERED: LORazepam 2 MG/ML VIAL IV PUSH PRN ×4 (15:15)
[2018-03-06] MEDS ORDERED: NALOXONE HCL 0.4 MG/ML AMP IV PUSH PRN (15:15)
--- NOTE | 2018-03-06 15:21 | HHI.HP ---
[facility] No Primary Care Physician Admission Diagnosis Acute pancreatitis rule out common bile duct stone Diagnoses: Chief Complaint: Abdominal pain Travel History International Travel<30 Days: No Contact w/Intl Traveler <30 Da: No Traveled to Known Affected Are: No History of Present Illness This patient is a 52-year-old gentleman with chronic alcohol dependency issues was coming with abdominal pain localized to the right upper quadrant. It is worse with fatty foods and worse with palpation. He has not had any nausea or vomiting. He notes that his pain started most when he began changing his diet to a high fat diet. His daughter has gallstones as well but she has no symptoms and she lives a very healthy and lean Style. Patient seems to have more comfort after the Toradol was given intravenously here in the emergency room. Of note he has significant LFTs which are elevated as well as elevated lipase. He has never had any pancreatitis that he knows about. His got elevated blood pressure and elevated heart rate as well. Patient's comes in emergently for further evaluation. Ultrasound gallbladder does show quite a bit of biliary sludge. He is recommended for further admission and treatment Review of Systems Constitutional: DENIES: Diaphoretic episodes, Fatigue, Fever, Weight gain, Weight loss, Chills, Dizziness, Change in appetite, Night Sweats Endocrine: DENIES: Heat/cold intolerance, Polydipsia, Polyuria, Polyphagia Eyes: DENIES: Blurred vision, Diplopia, Eye inflammation, Eye pain, Vision loss , Photosensitivity, Double Vision Ears, nose, mouth, throat: DENIES: Tinnitus, Hearing loss, Vertigo, Nasal discharge, Oral lesions, Throat pain, Hoarseness, Ear Pain, Running Nose, Epistaxis, Sinus Pain, Toothache, Odynophagia Respiratory: DENIES: Apneas, Cough, Snoring, Wheezing, Hemoptysis, Sputum production, Shortness of breath Cardiovascular: DENIES: Chest pain, Palpitations, Syncope, Dyspnea on Exertion , PND, Lower Extremity Edema, Orthopnea, Claudication Gastrointestinal: COMPLAINS OF: Abdominal pain Genitourinary: DENIES: Sexual dysfunction, Urinary frequency, Urinary incontinence, Urgency, Hematuria, Dysuria, Nocturia, Penile Discharge, Testicular Pain, Testicular Swelling Musculoskeletal: DENIES: Joint pain, Muscle aches, Stiffness, Joint Swelling, Back pain, Neck pain Integumentary: DENIES: Abnormal pigmentation, Nail changes, Pruritus, Rash Hematologic/lymphatic: DENIES: Bruising, Lymphadenopathy Immunologic/allergic: DENIES: Eczema, Urticaria Neurologic: DENIES: Abnormal gait, Headache, Localized weakness, Paresthesias, Seizures, Speech Problems, Tremor, Poor Balance Psychiatric: DENIES: Anxiety, Confusion, Mood changes, Depression, Hallucinations, Agitation, Suicidal Ideation, Homicidal Ideation, Delusions Past Family Social History Past Medical History Hypertension Chronic back pain Past Surgical History Back surgery, knee surgery Reported Medications Reviewed in the EMR, nothing new Allergies: Coded Allergies: No Known Allergies (Verified Adverse Reaction, Unknown, 03/06/18) Active Ordered Medications Reviewed in the EMR Family History Mother and father history is unknown, brother and sister have diabetes Social History Patient does drink at least 6 beers a day, lives with his brother Patient does smoke a pack a day for the last 35 years Physical Exam Vital Signs Vital Signs Date Time Temp Pulse Resp B/P (MAP) Pulse Ox O2 Delivery O2 Flow Rate FiO2 03/06/18 12:53 99 Room Air 03/06/18 12:26 98.6 103 16 190/94 (126) 99 Physical Exam GENERAL: This is a well-nourished, well-developed patient, jaundiced SKIN: Facial scars consistent with previous skin cancer, no rashes, ecchymoses or lesions. Cool and dry. HEAD: Atraumatic. Normocephalic. No temporal or scalp tenderness. EYES: Pupils equal round and reactive. Extraocular motions intact. No scleral icterus. No injection or drainage. ENT: Nose without bleeding, purulent drainage or septal hematoma. Throat without erythema, tonsillar hypertrophy or exudate. Uvula midline. Airway patent. NECK: Trachea midline. No JVD or lymphadenopathy. Supple, nontender, no meningeal signs. CARDIOVASCULAR: Regular rate and rhythm without murmurs, gallops, or rubs. RESPIRATORY: Clear to auscultation. Breath sounds equal bilaterally. No wheezes , rales, or rhonchi. GASTROINTESTINAL: Abdomen soft, mid abdominal pain with positive Lopez sign, nondistended. No hepato-splenomegaly, or palpable masses. No guarding. MUSCULOSKELETAL: Extremities without clubbing, cyanosis, or edema. No joint tenderness, effusion, or edema noted. No calf tenderness. Negative Homans sign bilaterally. NEUROLOGICAL: Awake and alert. Cranial nerves II through XII intact. Motor and sensory grossly within normal limits. Five out of 5 muscle strength in all muscle groups. Normal speech. Laboratory Laboratory Tests Test 03/06/18 12:55 White Blood Count 9.2 Red Blood Count 5.40 Hemoglobin 17.9 Hematocrit 50.6 Mean Corpuscular Volume 93.8 Mean Corpuscular Hemoglobin 33.2 Mean Corpuscular Hemoglobin Concent 35.3 Red Cell Distribution Width 13.5 Platelet Count 125 Mean Platelet Volume 8.6 Neutrophils (%) (Auto) 72.8 Lymphocytes (%) (Auto) 16.4 Monocytes (%) (Auto) 7.2 Eosinophils (%) (Auto) 0.7 Basophils (%) (Auto) 2.9 Neutrophils # (Auto) 6.6 Lymphocytes # (Auto) 1.5 Monocytes # (Auto) 0.7 Eosinophils # (Auto) 0.1 Basophils # (Auto) 0.3 CBC Comment DIFF FINAL Differential Comment Blood Urea Nitrogen 9 Creatinine 0.75 Random Glucose 140 Total Protein 8.5 Albumin 3.8 Calcium Level 9.5 Alkaline Phosphatase 164 Aspartate Amino Transf (AST/SGOT) 186 Alanine Aminotransferase (ALT/SGPT) 204 Total Bilirubin 5.8 Sodium Level 132 Potassium Level 3.8 Chloride Level 100 Carbon Dioxide Level 21.5 Anion Gap 11 Estimat Glomerular Filtration Rate 110 Lipase 72183 Result Diagram: 03/06/18 1255 03/06/18 1255 Imaging Last Impressions Gall Bladder Ultrasound 03/06/18 0000 Signed Impressions: Service Date/Time: Tuesday, March 06, 2018 13:19 - CONCLUSION: 1. Echogenic liver consistent with hepatic steatosis versus medical liver disease. 2. Large amount of probable thick gallbladder sludge with gallbladder wall thickening. Although nonspecific, findings are likely colonic. Consider HIDA scan if there is significant persistent clinical concern regarding acute cholecystitis. Heber Resendiz MD Septic Shock Reassessment Septic shock perfusion: reassessment completed Caprini VTE Risk Assessment Caprini VTE Risk Assessment: Mod/High Risk (score >= 2) Caprini Risk Assessment Model Point Value = 1 Point Value = 2 Point Value = 3 Point Value = 5 Age 41-60 Minor surgery BMI > 25 kg/m2 Swollen legs Varicose veins or History of unexplained or recurrent spontaneous Oral contraceptives or hormone replacement Sepsis (< 1 month) Serious lung disease, including pneumonia (< 1 month) Abnormal pulmonary function Acute myocardial infarction Congestive heart failure (< 1 month) History of inflammatory bowel disease Medical patient at bed rest Age 61-74 Arthroscopic surgery Major open surgery (> 45 min) Laparoscopic surgery (> 45 min) Malignancy Confined to bed (> 72 hours) Immobilizing plaster cast Central venous access Age >= 75 History of VTE Family history of VTE Factor V Leiden Prothrombin [id number] Lupus anticoagulant Anticardiolipin antibodies Elevated serum homocysteine Heparin-induced thrombocytopenia Other congenital or acquired thrombophilia Stroke (< 1 month) Elective arthroplasty Hip, pelvis, or leg fracture Acute spinal cord injury (< 1 month) Prophylaxis Regimen Total Risk Factor Score Risk Level Prophylaxis Regimen 0-1 Low Early ambulation 2 Moderate Order ONE of the following: *Sequential Compression Device (SCD) *Heparin 5000 units SQ BID 3-4 Higher Order ONE of the following medications: *Heparin 5000 units SQ TID *Enoxaparin/Lovenox 40 mg SQ daily (WT < 150 kg, CrCl > 30 mL/min) *Enoxaparin/Lovenox 30 mg SQ daily (WT < 150 kg, CrCl > 10-29 mL/min) *Enoxaparin/Lovenox 30 mg SQ BID (WT < 150 kg, CrCl > 30 mL/min) AND/OR *Sequential Compression Device (SCD) 5 or more Highest Order ONE of the following medications: *Heparin 5000 units SQ TID (Preferred with Epidurals) *Enoxaparin/Lovenox 40 mg SQ daily (WT < 150 kg, CrCl > 30 mL/min) *Enoxaparin/Lovenox 30 mg SQ daily (WT < 150 kg, CrCl > 10-29 mL/min) *Enoxaparin/Lovenox 30 mg SQ BID (WT < 150 kg, CrCl > 30 mL/min) AND *Sequential Compression Device (SCD) Assessment and Plan Problem List: (1) Alcoholic hepatitis ICD Code: K70.10 - Alcoholic hepatitis without ascites Status: Acute Plan: WA protocol, watch for signs of withdrawal Patient has cut down from 24 beers to 6-8 beers a day He has no indication of abstinence (2) Hypertension ICD Code: I10 - Essential (primary) hypertension Status: Acute Plan: Continue with home regimen, Norvasc and lisinopril (3) Acute pancreatitis ICD Code: K85.90 - Acute pancreatitis without necrosis or infection, unspecified Status: Acute Plan: Likely multifactorial due to biliary sludge and alcoholic disease. We will continue with supportive care, IV hydration and clear liquids for now IV narcotics for pain as needed Code Status Full code Physician Certification 2 Midnight Certification Type: Admission for Inpatient Services Order for Inpatient Services The services are ordered in accordance with Medicare regulations or non- Medicare payer requirements, as applicable. In the case of services not specified as inpatient-only, they are appropriately provided as inpatient services in accordance with the 2-midnight benchmark. Estimated LOS (days): 3 3 days is the estimated time the patient will need to remain in the hospital, assuming treatment plan goals are met and no additional complications. Post-Hospital Plan: Home Problem Qualifiers (1) Alcoholic hepatitis: Qualified Codes: K70.10 - Alcoholic hepatitis without ascites (2) Acute pancreatitis: Qualified Codes: K85.90 - Acute pancreatitis without necrosis or infection, unspecified Alexa Ware MD Mar 06, 2018 15:21
[2018-03-06 15:37] LABS: INTERNATIONAL NORMALIZED RATIO 1.1 RATIO; PROTHROMBIN TIME - PATIENT 11.4 SEC (9.8-11.6)
[2018-03-06] MEDS: SODIUM CHLOR 0.9% 1000 ML INJ 1,000 ML IV SCH (15:37)
--- NOTE | 2018-03-06 16:18 | PD.CONS ---
HPI History of Present Illness This is a 52 year old male who presents with complaints of worsening abdominal pain mostly localized to the upper abdomen with no specific radiation no exacerbating or alleviating factors the patient denies any nausea vomiting denies any fever chills denies any change in appetite or weight loss the patient had been in his usual state of health up until this happened on Friday and it has persisted until today the patient drinks at least 10 beers a day and on admission through the ER he is found to have elevated lipase and elevated liver function tests consistent with probable acute alcoholic hepatitis currently patient appears to be comfortable sitting in a chair the pain is improved The patient denies any prior history of liver disease or pancreatitis PFSH Past Medical History Hypertension Chronic back pain Alcohol dependence Past Surgical History Back surgery, knee surgery Coded Allergies: No Known Allergies (Verified Adverse Reaction, Unknown, 03/06/18) Medications Current Medications Medications (Trade) Dose Ordered Sig/Ruby Route PRN Reason Start Time Stop Time Status Last Admin Dose Admin Sodium Chloride 1,000 ml @ 100 mls/hr Q10H IV 03/06/18 15:09 03/06/18 15:37 Sodium Chloride (NS Flush) 2 ml UNSCH PRN IV FLUSH FLUSH AFTER USING IV ACCESS 03/06/18 15:15 Sodium Chloride (NS Flush) 2 ml BID IV FLUSH 03/06/18 21:00 Acetaminophen (Tylenol) 650 mg Q4H PRN PO TEMP > 100.4 03/06/18 15:15 Ondansetron HCl (Zofran Inj) 4 mg Q6H PRN IVP NAUSEA OR VOMITING 03/06/18 15:15 Naloxone HCl (Narcan Inj) 0.4 mg UNSCH PRN IV PUSH SEE LABEL COMMENTS 03/06/18 15:15 Pantoprazole Sodium (Protonix) 40 mg DAILY PO 03/06/18 16:00 Flumazenil (Romazicon Inj) 0.2 mg Q1M PRN IV PUSH SEE LABEL COMMENTS 03/06/18 15:15 Lorazepam (Ativan) 1 mg Q4H PRN PO CIWA 8 - 10 03/06/18 15:15 Lorazepam (Ativan Inj) 1 mg Q4H PRN IV PUSH CIWA 8 - 10 03/06/18 15:15 Lorazepam (Ativan) 2 mg Q2H PRN PO CIWA 11-14 03/06/18 15:15 Lorazepam (Ativan Inj) 2 mg Q2H PRN IV PUSH CIWA 11-14 03/06/18 15:15 Lorazepam (Ativan Inj) 2 mg Q1H PRN IV PUSH CIWA 15-20 03/06/18 15:15 Lorazepam (Ativan Inj) 2 mg Q15M PRN IV PUSH CIWA > 20 03/06/18 15:15 Morphine Sulfate (Morphine Inj) 2 mg Q4H PRN IV PUSH pain 03/06/18 15:30 Family History Mother and father history is unknown, brother and sister have diabetes Social History Patient does drink at least 10 beers a day, lives with his brother Patient does smoke a pack a day for the last 35 years Review of Systems Review of systems Patient denies any headache dizziness blurry vision, denies any chest pain shortness of breath cough fever chills, Denies any palpitations or fatigue denies any polyuria dysuria hematuria, denies any numbness tingling or weakness, denies any skin rash pruritus or jaundice, denies any easy bruising or bleeding tendency, denies any recent change in mood GI Exam Vitals I&O Vital Signs Date Time Temp Pulse Resp B/P (MAP) Pulse Ox O2 Delivery O2 Flow Rate FiO2 03/06/18 12:53 99 Room Air 03/06/18 12:26 98.6 103 16 190/94 (126) 99 I/O 03/05/18 03/05/18 03/05/18 03/06/18 03/06/18 03/06/18 07:00 15:00 23:00 07:00 15:00 23:00 Intake Total 1000 ml Balance 1000 ml Intake IV Total 1000 ml Imaging Last Impressions Gall Bladder Ultrasound 03/06/18 0000 Signed Impressions: Service Date/Time: Tuesday, March 06, 2018 13:19 - CONCLUSION: 1. Echogenic liver consistent with hepatic steatosis versus medical liver disease. 2. Large amount of probable thick gallbladder sludge with gallbladder wall thickening. Although nonspecific, findings are likely colonic. Consider HIDA scan if there is significant persistent clinical concern regarding acute cholecystitis. Heber Resendiz MD Laboratory Test 03/06/18 12:55 White Blood Count 9.2 TH/MM3 Red Blood Count 5.40 MIL/MM3 Hemoglobin 17.9 GM/DL Hematocrit 50.6 % Mean Corpuscular Volume 93.8 FL Mean Corpuscular Hemoglobin 33.2 PG Mean Corpuscular Hemoglobin Concent 35.3 % Red Cell Distribution Width 13.5 % Platelet Count 125 TH/MM3 Mean Platelet Volume 8.6 FL Neutrophils (%) (Auto) 72.8 % Lymphocytes (%) (Auto) 16.4 % Monocytes (%) (Auto) 7.2 % Eosinophils (%) (Auto) 0.7 % Basophils (%) (Auto) 2.9 % Neutrophils # (Auto) 6.6 TH/MM3 Lymphocytes # (Auto) 1.5 TH/MM3 Monocytes # (Auto) 0.7 TH/MM3 Eosinophils # (Auto) 0.1 TH/MM3 Basophils # (Auto) 0.3 TH/MM3 CBC Comment DIFF FINAL Differential Comment Prothrombin Time 11.4 SEC Prothromb Time International Ratio 1.1 RATIO Blood Urea Nitrogen 9 MG/DL Creatinine 0.75 MG/DL Random Glucose 140 MG/DL Total Protein 8.5 GM/DL Albumin 3.8 GM/DL Calcium Level 9.5 MG/DL Alkaline Phosphatase 164 U/L Aspartate Amino Transf (AST/SGOT) 186 U/L Alanine Aminotransferase (ALT/SGPT) 204 U/L Total Bilirubin 5.8 MG/DL Sodium Level 132 MEQ/L Potassium Level 3.8 MEQ/L Chloride Level 100 MEQ/L Carbon Dioxide Level 21.5 MEQ/L Anion Gap 11 MEQ/L Estimat Glomerular Filtration Rate 110 ML/MIN Lipase 38672 U/L Physical Examination HEENT: Pupils round and reactive to light; normocephalic; atraumatic; no jaundice. Throat is clear. NECK: Neck is supple, no JVD, no lymphadenopathy. CHEST: Chest is clear to auscultation and percussion. CARDIAC: Regular rate and rhythm with no murmur gallop or rubs. ABDOMEN: Soft, mildly distended and mildly tender with no rebound or guarding; no hepatosplenomegaly; bowel sounds are present in all four quadrants. EXTREMITIES: No clubbing, cyanosis, or edema. SKIN: Normal; no rash; no jaundice. TRAFFIC OBSERVER: No focal deficits; alert and oriented times three. Assessment and Plan Plan Patient presenting with abdominal pain he is noted to have elevated liver function tests with noted elevated lipase Ultrasound of the abdomen reveals sludge and steatosis and the MRCP was noted to be negative Most likely patient has acute alcoholic hepatitis and acute alcoholic pancreatitis At this point the course appears to be improving and mild I would continue with active hydration and close monitoring of vitals and blood work Patient is advised to abstain from alcohol Further recommendations shall depend on his hospital course Asher Garcia MD Mar 06, 2018 16:18
[2018-03-06] MEDS: PANTOPRAZOLE SOD 40 MG DELAYED RELEASE TAB PO SCH (16:44)
[2018-03-06 16:45] VITALS: BP 165/86; PULSE 86; RESP 16; O2SAT 98
--- NOTE | 2018-03-06 17:02 | RADRPT ---
EXAM DATE/TIME: 03/06/2018 16:17 [facility] COMPARISON: US ABDOMEN - GALLBLADDER, March 06, 2018, 13:19. INDICATIONS : Obstruction. MEDICAL HISTORY : Hypertension. Diabetes mellitus type 2. SURGICAL HISTORY : Knee surgeries. ENCOUNTER: Initial ACUITY: 3 day PAIN SCORE: 5/10 LOCATION: Abdomen TECHNIQUE: Multiplanar, multisequence magnetic resonance imaging of the abdomen was performed. High-resolution 3D dataset was utilized to reconstruct maximum-intensity projection (MIP) images. FINDINGS: INTRAHEPATIC BILE DUCTS: Within normal limits. No significant anatomical variant is present. EXTRAHEPATIC BILE DUCTS: The common bile duct measures 5 mm No stone or filling defect is identified. GALLBLADDER: No stones, wall thickening, or pericholecystic fluid. LIVER: Normal size and signal intensity. No concerning liver lesion is identified on this non-contrast exam. PANCREAS: The main pancreatic duct is normal in size. There is no significant anatomical variant. Signal inte nsity is within normal limits. No mass is visualized on this non-contrast exam. OTHER: The remaining visualized structures demonstrate no acute abnormality on this non-contrast exam. Small cortical cyst in the inferior pole of the left kidney. CONCLUSION: Negative exam. No intra-or extrahepatic biliary ductal dilatation. No filling defects within the gallbladder lumen to suggest stone disease. Jovanny Alberts MD on March 06, 2018 at 16:54 Board Certified Radiologist. This report was verified electronically.
[2018-03-06] MEDS: MORPHINE SULFATE 2 MG/ML SYRINGE IV PUSH PRN ×2 (17:28→21:20)
[2018-03-06] MEDS ORDERED: METF1000 PO (17:43)
[2018-03-06 18:31] VITALS: BP 197/95; PULSE 86; RESP 16; TEMP 97.6; O2SAT 97
[2018-03-06 20:33] VITALS: BP 178/92; PULSE 86; RESP 16; TEMP 98; O2SAT 95
[2018-03-06] MEDS: SODIUM CHLORIDE 0.9% FLUSH 10 ML FLUSH IV FLUSH SCH (21:21)
[2018-03-06 23:52] LABS: FERRITIN 1655 NG/ML (26-388); IRON (FE) 68 MCG/DL (65-175)
[2018-03-07 00:33] VITALS: BP 160/80; PULSE 75; RESP 16; TEMP 97.9; O2SAT 96
[2018-03-07] MEDS: SODIUM CHLOR 0.9% 1000 ML INJ 1,000 ML IV SCH ×3 (02:29→14:25)
[2018-03-07] MEDS: MORPHINE SULFATE 2 MG/ML SYRINGE IV PUSH PRN ×3 (02:36→23:05)
[2018-03-07 06:56] LABS: AUTOMATED NEUTROPHIL # 2.5 TH/MM3 (1.8-7.7); BASOPHIL % 0.8 % (0.0-2.0); EOSINOPHIL # 0.2 TH/MM3 (0-0.4); EOSINOPHIL % 3.7 % (0.0-4.0); HEMATOCRIT 46.9 % (39.0-51.0); HEMOGLOBIN 16.2 GM/DL (13.0-17.0); LYMPH % 33.4 % (9.0-44.0); LYMPHOCYTE # 1.5 TH/MM3 (1.0-4.8); MEAN CELL VOLUME 94.2 FL (80.0-100.0); MEAN CORPUSCULAR HEMOGLOBIN 32.6 PG (27.0-34.0); MEAN CORPUSCULAR HGB CONC 34.6 % (32.0-36.0); MEAN PLATELET VOLUME 8.4 FL (7.0-11.0); MONO % 8.4 % (0.0-8.0); MONOCYTE # 0.4 TH/MM3 (0-0.9); NEUT % 53.7 % (16.0-70.0); PLATELET COUNT 108 TH/MM3 (150-450); RED BLOOD COUNT 4.98 MIL/MM3 (4.50-5.90); RED CELL DISTRIBUTION WIDTH 13.4 % (11.6-17.2); WHITE BLOOD COUNT 4.6 TH/MM3 (4.0-11.0)
[2018-03-07 07:21] LABS: CHLORIDE 103 MEQ/L (98-107); SODIUM (NA) 137 MEQ/L (136-145)
[2018-03-07 07:25] LABS: CALCIUM 8.8 MG/DL (8.5-10.1)
[2018-03-07 07:26] LABS: ALBUMIN 3.2 GM/DL (3.4-5.0); BICARBONATE 24.9 MEQ/L (21.0-32.0); BLOOD UREA NITROGEN 6 MG/DL (7-18); GLUCOSE,RANDOM 100 MG/DL (74-106)
[2018-03-07 07:28] LABS: ALT (GPT) 164 U/L (12-78); AST (GOT) 124 U/L (15-37)
[2018-03-07 07:29] LABS: GLOMERULAR FILTRATION RATE 142 ML/MIN (>89)
[2018-03-07 07:39] LABS: ALKALINE PHOSPHATASE 122 U/L (45-117); TOTAL BILIRUBIN ADULT 2.2 MG/DL (0.2-1.0); TOTAL PROTEIN 7.4 GM/DL (6.4-8.2)
[2018-03-07 07:50] VITALS: BP 162/82; PULSE 76; RESP 20; TEMP 97.4; O2SAT 98
[2018-03-07] MEDS: SODIUM CHLORIDE 0.9% FLUSH 10 ML FLUSH IV FLUSH SCH ×2 (08:49→20:43)
[2018-03-07] MEDS: PANTOPRAZOLE SOD 40 MG DELAYED RELEASE TAB PO SCH (08:49)
--- NOTE | 2018-03-07 09:45 | HHI.GIFU ---
Subjective Remarks Pt is resting in bed, denies nausea or vomiting, still with abd pain, getting ready to go for HIDA scan (Livia Rizvi) Objective Vitals I&O Vital Signs Date Time Temp Pulse Resp B/P (MAP) Pulse Ox O2 Delivery O2 Flow Rate FiO2 03/07/18 04:12 03/07/18 03:36 16 03/07/18 00:33 97.9 75 16 160/80 (106) 96 03/06/18 20:33 98.0 86 16 178/92 (120) 95 03/06/18 18:31 97.6 86 16 197/95 (129) 97 03/06/18 17:06 03/06/18 16:45 86 16 165/86 (112) 98 Room Air 03/06/18 12:53 99 Room Air 03/06/18 12:26 98.6 103 16 190/94 (126) 99 I/O 03/06/18 03/06/18 03/06/18 03/07/18 03/07/18 03/07/18 07:00 15:00 23:00 07:00 15:00 23:00 Intake Total 1000 ml 1480 ml 1000 ml Balance 1000 ml 1480 ml 1000 ml Intake Oral 480 ml IV Total 1000 ml 1000 ml 1000 ml # Voids 0 3 # Bowel Movements 0 0 Laboratory Laboratory Tests Test 03/06/18 12:55 03/07/18 05:40 White Blood Count 9.2 4.6 Red Blood Count 5.40 4.98 Hemoglobin 17.9 16.2 Hematocrit 50.6 46.9 Mean Corpuscular Volume 93.8 94.2 Mean Corpuscular Hemoglobin 33.2 32.6 Mean Corpuscular Hemoglobin Concent 35.3 34.6 Red Cell Distribution Width 13.5 13.4 Platelet Count 125 108 Mean Platelet Volume 8.6 8.4 Neutrophils (%) (Auto) 72.8 53.7 Lymphocytes (%) (Auto) 16.4 33.4 Monocytes (%) (Auto) 7.2 8.4 Eosinophils (%) (Auto) 0.7 3.7 Basophils (%) (Auto) 2.9 0.8 Neutrophils # (Auto) 6.6 2.5 Lymphocytes # (Auto) 1.5 1.5 Monocytes # (Auto) 0.7 0.4 Eosinophils # (Auto) 0.1 0.2 Basophils # (Auto) 0.3 0.0 CBC Comment DIFF FINAL DIFF FINAL Differential Comment Prothrombin Time 11.4 Prothromb Time International Ratio 1.1 Blood Urea Nitrogen 9 6 Creatinine 0.75 0.60 Random Glucose 140 100 Total Protein 8.5 7.4 Albumin 3.8 3.2 Calcium Level 9.5 8.8 Alkaline Phosphatase 164 122 Aspartate Amino Transf (AST/SGOT) 186 124 Alanine Aminotransferase (ALT/SGPT) 204 164 Total Bilirubin 5.8 2.2 Sodium Level 132 137 Potassium Level 3.8 3.5 Chloride Level 100 103 Carbon Dioxide Level 21.5 24.9 Anion Gap 11 9 Estimat Glomerular Filtration Rate 110 142 Iron Level 68 Ferritin 1655 Lipase 67163 1308 Imaging Last Impressions Gall Bladder Ultrasound 03/06/18 0000 Signed Impressions: Service Date/Time: Tuesday, March 06, 2018 13:19 - CONCLUSION: 1. Echogenic liver consistent with hepatic steatosis versus medical liver disease. 2. Large amount of probable thick gallbladder sludge with gallbladder wall thickening. Although nonspecific, findings are likely colonic. Consider HIDA scan if there is significant persistent clinical concern regarding acute cholecystitis. Heber Resendiz MD Cholangiopancreatography MRI 03/06/18 0000 Signed Impressions: Service Date/Time: Tuesday, March 06, 2018 16:17 - CONCLUSION: Negative exam. No intra-or extrahepatic biliary ductal dilatation. No filling defects within the gallbladder lumen to suggest stone disease. Jovanny Alberts MD Physical Exam HEENT: normocephalic; atraumatic; jaundice. CHEST: Chest is clear to auscultation and percussion. CARDIAC: Regular rate and rhythm with no murmur gallop or rubs. ABDOMEN: Soft, nondistended, nontender; mid abdominal pain with positive Lopez sign; bowel sounds are present in all four quadrants. EXTREMITIES: No clubbing, cyanosis, or edema. SKIN: Normal; no rash; jaundice. RECREATION FACILITY MANAGER: No focal deficits; alert and oriented times three. (Livia Rizvi) Assessment and Plan Plan Patient presenting with abdominal pain he is noted to have elevated liver function tests with noted elevated lipase Ultrasound of the abdomen reveals sludge and steatosis and the MRCP was noted to be negative 03/07/18 Acute alcoholic hepatitis and acute alcoholic pancreatitis- lipase and LFTs trending down but still high, pt going for HIDA scan this morning, Pt with heavy alcohol intake but cholecystitis still a possibility, Liver work up pending Plan: Clear liquid diet Await HIDA Consider GS consult Con. active hydration and close monitoring of vitals and blood work Lipase, LFTs in am Liver work up pending Patient is advised to abstain from alcohol Further recommendations shall depend on his hospital course Patient seen and examined by Dr. Zaldivar and myself and this note is written on his behalf. (Livia Rizvi) Physician Comments Seen and examined with PHOTOGRAMMETRIC SURVEYOR, doing better with less pain. HIDA -ve. Pancreatitis secondary to ETOH. Advised to quit etoh. Low fat diet. Can dc home tomorrow if Lipase continues to improve and he is doing better. (Cole Zaldivar MD) Livia Rizvi Mar 07, 2018 09:45 Cole Zaldivar MD Mar 07, 2018 17:58
[2018-03-07] MEDS ORDERED: SINCALIDE 5 MCG/5 ML VIAL IV ONE (11:06)
--- NOTE | 2018-03-07 11:17 | HHI.PR ---
Subjective Remarks Patient is a 52-year-old gentleman with diabetes and hypertension comes in with right upper quadrant pain likely gallstone hepatitis. Overall doing well. Blood pressure somewhat elevated office blood pressure medications. Pain is improved and patient does appear to have some hepatic dysfunction Related to alcoholism Objective Vitals Vital Signs Date Time Temp Pulse Resp B/P (MAP) Pulse Ox O2 Delivery O2 Flow Rate FiO2 03/07/18 07:50 97.4 76 20 162/82 (108) 98 03/07/18 04:12 03/07/18 03:36 16 03/07/18 00:33 97.9 75 16 160/80 (106) 96 03/06/18 20:33 98.0 86 16 178/92 (120) 95 03/06/18 18:31 97.6 86 16 197/95 (129) 97 03/06/18 17:06 03/06/18 16:45 86 16 165/86 (112) 98 Room Air 03/06/18 12:53 99 Room Air 03/06/18 12:26 98.6 103 16 190/94 (126) 99 I/O 03/06/18 03/06/18 03/06/18 03/07/18 03/07/18 03/07/18 07:00 15:00 23:00 07:00 15:00 23:00 Intake Total 1000 ml 1480 ml 1000 ml Balance 1000 ml 1480 ml 1000 ml Intake Oral 480 ml IV Total 1000 ml 1000 ml 1000 ml # Voids 0 3 # Bowel Movements 0 0 Result Diagram: 03/07/18 0540 03/07/18 0540 Objective Remarks GENERAL: This is a well-nourished, well-developed patient, in no apparent distress. CARDIOVASCULAR: Regular rate and rhythm without murmurs, gallops, or rubs. RESPIRATORY: Clear to auscultation. Breath sounds equal bilaterally. No wheezes , rales, or rhonchi. GASTROINTESTINAL: Abdomen soft, non-tender, nondistended. Normal active bowel sounds MUSCULOSKELETAL: Extremities without clubbing, cyanosis, or edema. NEURO: Alert & Oriented x4 to person, place, time, situation. Moves all ext x4 A/P Problem List: (1) Alcoholic hepatitis ICD Code: K70.10 - Alcoholic hepatitis without ascites Status: Acute Plan: [facility] protocol, watch for signs of withdrawal Patient has cut down from 24 beers to 6-8 beers a day He has no indication of abstinence Currently stable (2) Hypertension ICD Code: I10 - Essential (primary) hypertension Status: Acute Plan: Continue with home regimen, Norvasc and lisinopril (3) Acute pancreatitis ICD Code: K85.90 - Acute pancreatitis without necrosis or infection, unspecified Status: Acute Plan: Likely multifactorial due to biliary sludge and alcoholic disease. Improved GI consult appreciated, follow-up HIDA scan Neurosurgery consult pending We will continue with supportive care, IV hydration and clear liquids for now IV narcotics for pain as needed Discharge Planning Likely discharge in a.m. if no interventions planned Problem Qualifiers (1) Alcoholic hepatitis: Qualified Codes: K70.10 - Alcoholic hepatitis without ascites (2) Acute pancreatitis: Qualified Codes: K85.90 - Acute pancreatitis without necrosis or infection, unspecified Alexa Ware MD Mar 07, 2018 11:17
[2018-03-07 11:48] VITALS: BP 184/100; PULSE 81; RESP 18; TEMP 98.7; O2SAT 100
[2018-03-07] MEDS: amLODIPine BESYLATE 5 MG TAB PO SCH (11:50)
[2018-03-07] MEDS: LISINOPRIL 10 MG TAB PO SCH (12:03)
--- NOTE | 2018-03-07 12:08 | RADRPT ---
EXAM DATE/TIME: 03/07/2018 09:35 [facility] COMPARISON: No previous studies available for comparison. INDICATIONS : Abdomen pain, alcoholic hepatitis. DOSE: 4.2 mCi Tc99m Mebrofenin IV MEDICATION: 1.66 mcg Cholecystokinin IV; No symptomatic response. Cholecystokinin was administered by slow infusion over 8 minutes beginning at 60 minutes. MEDICAL HISTORY : Hypertension. Smoker. ETOH abuse. SURGICAL HISTORY : Total knee replacement, right. Fusion, cervical. ENCOUNTER: Initial ACUITY: 1 day PAIN SCALE: 3/10 LOCATION: Bilateral upper quadrant TECHNIQUE: Following the intravenous administration of radiotracer, dynamic sequential image were performed with continuous acquisition. Time-activity curves were generated. FINDINGS: HEPATIC KINETICS: There is prompt uptake of radiotracer in the liver. No focal defects are seen. There is normal rate of washout from the hepatic parenchyma. BILIARY CLEARANCE: Activity is first seen in the extrahepatic biliary system at 25 minutes. There is normal excretion i nto the small bowel. GALLBLADDER: Activity is first seen in the gallbladder at 20 minutes. POST CHOLECYSTOKININ: After Cholecystokinin administration, there is prompt emptying of the gallbladder with a 50% ejection fraction. Common bile duct kinetics are normal and there is no evidence of biliary obstruction. BILIARY ENTERIC REFLUX: None observed. CLINICAL: The patient was asymptomatic after Cholecystokinin administration. CONCLUSION: Normal examination. Annalisa Salinas MD on March 07, 2018 at 12:01 Board Certified Radiologist. This report was verified electronically.
[2018-03-07 15:50] VITALS: BP 170/84; PULSE 71; RESP 20; TEMP 97.6; O2SAT 97
[2018-03-07] MEDS: cloNIDine HCL 0.1 MG TAB PO PRN (16:51)
--- NOTE | 2018-03-07 20:43 | MB ---
cc: Micheal Busby MD DATE: 03/07/2018 REASON FOR CONSULTATION: Pancreatitis. HISTORY OF PRESENT ILLNESS: This is a pleasant 52-year-old gentleman, who by his own admission, drinks a fair amount of beer. He came into the emergency room complaining of bilateral back pain and pain in the midepigastric and some a little bit in the right upper quadrant. He was seen in the emergency room, was found to have an elevated lipase and elevated liver enzymes and he had a fairly extensive workup including an ultrasound, which did not show any stones but possible sludge. He had a cholangiogram, which did not show any stones or any abnormality in the gallbladder or the ductal system. He had a HIDA scan which was read as normal, as well. Subsequently in the hospital here he has improved in his symptomatology with a downward trend of his lipase. Surgery was consulted for an opinion. PAST MEDICAL HISTORY: Negative for any chronic medical problems except for hypertension. He does smoke and does drink a fair amount of alcohol on a daily basis. He drinks fair amount of beer. He has a history of reflux and heartburn in the past, never had any biliary colic type symptoms since previously. REVIEW OF SYSTEMS: No nausea or vomiting. No shortness of breath. No real chest pain. No neurologic or endocrine problems. PHYSICAL EXAMINATION: GENERAL: He is up walking in the room with stable vital signs. CHEST: Clear. HEART: Regular rate. ABDOMEN: Slightly obese, soft, without rebound or guarding. No surgical scars. No umbilical hernia. No masses are appreciated. EXTREMITIES: Moves all extremities. No clubbing, cyanosis or edema. LABORATORY DATA: He had a white count of 4, H and H of 16 and 46. Chemistry today is all normal. He has a total bilirubin of 2.2 was 5.82 a day ago. His lipase was 26,000, today it is 1300. Immunology is pending. Hepatitis profile is pending. IMAGING STUDIES: Show an ultrasound with no stones, may be some thick bile. MRCP shows no abnormality. No stones, no filling defect, no choledocholithiasis, no changes in the gallbladder. He had a HIDA scan which showed ejection fraction of 50%. He did not have any symptoms with injection. ASSESSMENT: A 52-year-old gentleman who knows he drinks too much alcohol with an episode of probable alcoholic pancreatitis. There was some question of symptomatology, if he had gallstone pancreatitis, but this failed to demonstrate anything on any of the images except for some mild thick bile. At this time, his pain is resolved disease. They are slowly increasing his diet. At this time, I have no indication for a cholecystectomy. This was explained to the patient. He appeared to understand. From my standpoint increase his diet as tolerated and able to be discharged home. Micheal Busby MD JDB/rt , 06:52 PM , 08:42 PM
[2018-03-07 21:14] VITALS: BP 180/88; PULSE 65; RESP 20; TEMP 97.9; O2SAT 96
[2018-03-08] VITALS (7 sets, daily range): BP systolic 152–170; BP diastolic 80–94; PULSE 62–74; RESP 16–20; TEMP 96.1–98.8; O2SAT 96–100
[2018-03-08] MEDS: cloNIDine HCL 0.1 MG TAB PO PRN ×2 (01:08→13:13)
[2018-03-08] MEDS: SODIUM CHLOR 0.9% 1000 ML INJ 1,000 ML IV SCH ×2 (06:00→16:11)
[2018-03-08] MEDS: MORPHINE SULFATE 2 MG/ML SYRINGE IV PUSH PRN (06:05)
[2018-03-08 08:09] LABS: CHLORIDE 102 MEQ/L (98-107); SODIUM (NA) 134 MEQ/L (136-145)
[2018-03-08 08:13] LABS: BICARBONATE 24.2 MEQ/L (21.0-32.0); BLOOD UREA NITROGEN 9 MG/DL (7-18)
[2018-03-08 08:15] LABS: ALBUMIN 3.4 GM/DL (3.4-5.0); GLUCOSE,RANDOM 125 MG/DL (74-106)
[2018-03-08 08:16] LABS: ALT (GPT) 181 U/L (12-78); AST (GOT) 137 U/L (15-37); CREATININE 0.64 MG/DL (0.60-1.30); GLOMERULAR FILTRATION RATE 132 ML/MIN (>89)
[2018-03-08 08:17] LABS: TOTAL BILIRUBIN ADULT 1.8 MG/DL (0.2-1.0); TOTAL PROTEIN 7.6 GM/DL (6.4-8.2)
[2018-03-08 08:19] LABS: ALKALINE PHOSPHATASE 110 U/L (45-117)
[2018-03-08] MEDS: PANTOPRAZOLE SOD 40 MG DELAYED RELEASE TAB PO SCH (09:14)
[2018-03-08] MEDS: SODIUM CHLORIDE 0.9% FLUSH 10 ML FLUSH IV FLUSH SCH (09:14)
[2018-03-08] MEDS: amLODIPine BESYLATE 5 MG TAB PO SCH (09:14)
[2018-03-08] MEDS: LISINOPRIL 10 MG TAB PO SCH (09:17)
[2018-03-08] MEDS ORDERED: amLODIPine BESYLATE 5 MG TAB PO ONE (10:15)
[2018-03-08] MEDS ORDERED: AMLO10 PO (13:01)
--- NOTE | 2018-03-08 13:05 | HHI.PR ---
Subjective Remarks Patient states is feeling a lot better. No nausea or vomiting. No abdominal pain at this time. Tolerating a diet. Comfortable going home today. Objective Vitals Vital Signs Date Time Temp Pulse Resp B/P (MAP) Pulse Ox O2 Delivery O2 Flow Rate FiO2 03/08/18 07:50 97.8 65 20 166/93 (117) 96 03/08/18 04:00 03/08/18 00:59 62 16 170/81 (110) 97 03/07/18 21:14 97.9 65 20 180/88 (118) 96 03/07/18 15:50 97.6 71 20 170/84 (112) 97 I/O 03/07/18 03/07/18 03/07/18 03/08/18 03/08/18 03/08/18 07:00 15:00 23:00 07:00 15:00 23:00 Intake Total 1000 ml 1058 ml 600 ml Balance 1000 ml 1058 ml 600 ml Intake Oral 60 ml 600 ml IV Total 1000 ml 998 ml # Voids 3 4 5 4 # Bowel Movements 0 0 0 0 Result Diagram: 03/07/18 0540 03/08/18 0700 Imaging Last Impressions Hepatobiliary Scan Nuclear Medicine 03/07/18 0600 Signed Impressions: Service Date/Time: Wednesday, March 07, 2018 09:35 - CONCLUSION: Normal examination. Annalisa Salinas MD Gall Bladder Ultrasound 03/06/18 0000 Signed Impressions: Service Date/Time: Tuesday, March 06, 2018 13:19 - CONCLUSION: 1. Echogenic liver consistent with hepatic steatosis versus medical liver disease. 2. Large amount of probable thick gallbladder sludge with gallbladder wall thickening. Although nonspecific, findings are likely colonic. Consider HIDA scan if there is significant persistent clinical concern regarding acute cholecystitis. Heber Resendiz MD Cholangiopancreatography MRI 03/06/18 0000 Signed Impressions: Service Date/Time: Tuesday, March 06, 2018 16:17 - CONCLUSION: Negative exam. No intra-or extrahepatic biliary ductal dilatation. No filling defects within the gallbladder lumen to suggest stone disease. Jovanny Alebrts MD Objective Remarks GENERAL: Sitting up on recliner. CARDIOVASCULAR: Regular rate and rhythm without murmurs RESPIRATORY: Clear to auscultation. Breath sounds equal bilaterally. No wheezes GASTROINTESTINAL: Abdomen soft, non-tender, nondistended. Normal active bowel sounds MUSCULOSKELETAL: Extremities without edema. NEURO: Alert & Oriented . Moves all ext x4 A/P Problem List: (1) Alcoholic hepatitis ICD Code: K70.10 - Alcoholic hepatitis without ascites Status: Acute (2) Hypertension ICD Code: I10 - Essential (primary) hypertension Status: Acute (3) Acute pancreatitis ICD Code: K85.90 - Acute pancreatitis without necrosis or infection, unspecified Status: Acute Assessment and Plan (1) Alcoholic hepatitis CIWA protocol Patient has cut down from 24 beers to 6-8 beers a day however patient has been counseled to quit completely. He has no indication of abstinence Currently stable (2) Hypertension I have increased patient dose of Norvasc to 10 mg daily. d/c lisinopril due to chronic cough. Patient instructed to monitor blood pressure at home and bring log to PCP. (3) Acute pancreatitis Likely multifactorial due to biliary sludge and alcoholic disease. Abdominal pain resolved. GI consult appreciated, HIDA scan negative. General surgery evaluated the patient and at this time no intervention is needed. We will continue with supportive care, po hydration and low-fat diet Discharge Planning We will discharge patient today as long as blood pressure is better controlled. Heart healthy diet/low-fat diet Follow-up with PCP in a week Follow-up with GI in 1-2 weeks Prescription in chart Condition stable Activity ad anupam. Problem Qualifiers (1) Alcoholic hepatitis: Qualified Codes: K70.10 - Alcoholic hepatitis without ascites (2) Acute pancreatitis: Qualified Codes: K85.90 - Acute pancreatitis without necrosis or infection, unspecified Nu Moreland MD Mar 08, 2018 13:05
[2018-03-08] MEDS ORDERED: HYDR12.57 PO (14:32)
[2018-03-08] MEDS ORDERED: HYDROCHLOROTHIAZIDE 12.5 MG CAP PO ONE (14:45)
[2018-03-09] MEDS ORDERED: HYDROCHLOROTHIAZIDE 12.5 MG CAP PO SCH (09:00)
[2018-03-09] MEDS ORDERED: amLODIPine BESYLATE 5 MG TAB PO SCH (09:00)
[2018-03-10 14:39] LABS: SMOOTH MUSCLE TOTAL AUTOABS Negative (Negative)
[2018-03-11 13:52] LABS: MITOCHONDRIAL ABS LESS THAN 20.0 U (<=20.0)
== END 2018-03-08 16:53 | disposition home or self-care (01) | DRG 432 ==
LOC: PHED 12:23 → PHEDA 14:49 → PH3A 17:04
PROVIDERS: ADMIT Hospitalist; ATTEND Hospitalist
DX: K70.10 Alcoholic hepatitis without ascites (principal); K85.80 Other acute pancreatitis without necrosis or infection; I10 Essential (primary) hypertension; K21.9 Gastro-esophageal reflux disease without esophagitis; F17.210 Nicotine dependence, cigarettes, uncomplicated; F10.20 Alcohol dependence, uncomplicated; E11.9 Type 2 diabetes mellitus without complications
CPT/HCPCS: 74181; 76377; 76705; 78227; 80053; 80074; 82390; 82728; 83520; 83540; 83690; 85025; 85610; 86038; 86255; 96361; 96374; 96375; A9537; J1885; J2270; J2405; J2805; J7030